=== PATIENT | male | born 1990 | race Caucasian/White ===

== ENCOUNTER 2019-02-27 19:31 | Emergency (ER) | payer MEDICAID, SELFPAY ==
[2019-02-27 19:33] VITALS: BP 155/102; PULSE 100; RESP 18; TEMP 36.8; O2SAT 98; BMI 36.9
--- NOTE | 2019-02-27 19:35 | ED_ITS ---
Entered by Enedina Estrella, acting as scribe for Liane Sinclair HPI - Abdominal Pain General: Chief Complaint: Abdominal Pain Stated Complaint: abd pain Time Seen by Provider: 02/27/19 19:33 History of Present Illness: HPI narrative: 29 yo m came to the er for abd pain. Onset was today. Pt states that he has IBS-D and feels like that he is having a flare up. Pt states that he has been having some abd pain and some heartburn. MD elicited complaint: abdominal pain Pertinent past history: other (IBS-D) Onset (ago): day(s) (today) Pain Consistency: constant Location: LUQ, RUQ, RLQ and LLQ Severity: mild Quality: other (pain) Radiation: none Migration to: no migration Exacerbating factors: nothing Relieving factors: nothing Associated Symptoms: Denies chills, coffee ground emesis, constipation, GI cramping, diarrhea, dysuria, fever(s), hematochezia, hematuria, hematemesis, m rahul, nausea, syncope and vomiting Review of Systems General: Reports: other (negative unless marked) Const: Denies: fever, chills, body aches, fatigue, malaise or diaphoresis Eyes: Denies: change in vision or blurry vision ENMT: Denies: throat pain, painful swallowing, hoarseness, ear pain, ear discharge, Change in hearing or nasal discharge Card: Denies: chest pain, palpitations, irregular heart rhythm, syncope, pre- syncope, shortness of breath on exertion or shortness of breath when lying down Resp: Denies: shortness of breath, productive cough, non-productive cough, wheezing, coughing up blood or chest congestion GI: Denies: abdominal pain, nausea, vomiting, vomiting blood, coffee grounds in vomit, diarrhea, constipation, cramping, blood in stool or black tarry stool : Denies: flank pain, difficulty urinating, painful urination, urinary frequency, urinary urgency, decreased urine ouput, urinary incontinence or blood in urine Musc: Denies: neck pain, back pain, extremity pain, extremity swelling, joint pain, joint swelling, joint warmth or joint stiffness Skin/Breast: Denies: rash, skin tenderness or yellow skin Neuro: Denies: headache, numbness in extremities, weakness in extremities, changes in sensation, lack of coordination, difficulty walking, dizziness, vertigo or confusion Endo: Denies: excessive thirst, tired all the time, cold intolerance, excessive sweating, flushing or hot flashes Dexter/Lymph: Denies: easy bruising, easy bleeding, petechiae or enlarged lymph nodes All/Imm: Denies: hives, throat swelling, tongue swelling, facial swelling or acute wheezing PFSH ED PFSH: Statuses (acute, chronic, etc) shown below reflect problem list status as previously entered and may not be historically accurate Social History Smoking and tobacco status: never smoked Physical Exam Const: COMMON NORMALS: no apparent distress, oriented x3, no limitations, healthy appearing and well nourished EXAM LIMITATIONS: no altered mental status GENERAL APPEARANCE: cooperative, well kempt and well developed ORIENTATION/CONSCIOUSNESS: Yes awake HENMT: COMMON NORMALS: normocephalic, head/scalp atraumatic, hearing grossly n ormal bilaterally, external ears normal, EAC's normal, external nose normal and moist oral mucous membranes HEAD & SCALP: normal to inspection, normocephalic and atraumatic FACE & SINUS: normal facial exam and face symmetric NOSE: external nose normal and nares normal EXTERNAL EAR: Yes external ears normal EXTERNAL AUDITORY CANAL: EAC's normal MOUTH: oral and palatal mucosa normal and tongue normal Eye: COMMON NORMALS: PERRL, EOMs intact bilaterally, conjunctivae normal and no scleral icterus GENERAL EYE: normal appearance of both eyes and normal light reflex CONJUNCTIVA: Yes conjunctivae normal SCLERA: sclerae normal CORNEA: Yes corneas normal PUPIL: Yes PERRL DIRECT OPHTHALMOSCOPY: Yes normal light reflex Neck/C-Spine: COMMON NORMALS: full ROM, no lymphadenopathy, supple, no meningeal signs and no JVD GENERAL: Yes normal visual inspection and Yes trachea midline CERVICAL SPINE: Yes cervical ROM normal Chest: COMMONS NORMALS: inspection of chest normal and palpation of chest normal Resp: COMMON NORMALS: normal respiratory effort, no retractions, no use of accessory muscles and clear to auscultation bilaterally EFFORT & INSPECTION: Yes able to speak in complete sentences AUSCULTATION: clear to auscultation bilaterally Cardio: COMMON NORMALS: no JVD, regular rate, regular rhythm, S1 normal heart sound, S2 normal heart sound, no gallops, no clicks, no murmurs and no rub JUGULAR VENOUS DISTENTION: no JVD RATE: regular rate RHYTHM: regular rhythm HEART SOUNDS: S1 normal and S2 normal GI: COMMON NORMALS: soft to palpation, non-tender, no hepatosplenomegaly and no masses INSPECTION: Yes normal to inspection PALPATION: Yes soft and Yes no hepatosplenomegaly : COMMON NORMALS: Yes no CVA tenderness BLADDER/KIDNEY EXAM: Yes no CVA tenderness Back/Pelvis: COMMON NORMALS: no CVA tenderness, thoracic and lumbar spine normal to inspection, no thoracic nor lumbar tenderness and thoraco-lumbar ROM normal Extremity: COMMON NORMALS: normal to inspection, full ROM, normal capillary refill, no joint enlargement, no clubbing, cyanosis or edema and no calf tenderness Neuro: COMMON NORMALS: oriented x3, CN's II-XII intact bilaterally, moves all extremities, no focal motor deficits and no sensory deficits noted MENINGEAL SIGNS: Yes no meningeal signs Psych: COMMON NORMALS: mental status grossly normal, thought process normal, cooperative, affect normal, speech normal and activity/motor behavior normal APPEARANCE: Yes well kempt SPEECH: Yes normal speech THOUGHT PROCESS: normal thought process Skin: COMMON NORMALS: no rashes or lesions noted, skin turgor normal, no jaundice, no petechiae and no mottling GENERAL SKIN EXAM: no rashes or lesions noted and turgor normal Course Vital Signs: Vital signs: Vital Signs Temperature 98.3 F 02/27/19 19:33 Pulse Rate 83 02/27/19 21:32 Respiratory Rate 19 H 02/27/19 21:16 Blood Pressure 156/94 02/27/19 21:32 Pulse Oximetry 96 02/27/19 21:32 MDM - Abdominal Pain MDM Narrative: Medical decision making narrative: Patient comes in complaining of abdominal pain and primarily nausea and vomiting. His symptoms are better here after IV hydration. His abdominal pain was intermittent and cramping in nature. He is resolved at this time. He is loosely to peritonitis his exam. His nausea is better and he said no diarrhea here. He said no recent antibiotic exposure. I will go ahead and discharge him home with medication for his cramping abdominal pain. He does agree to return should his symptoms change or worsen. Lab Data: Labs: Lab Results 02/27/19 02/27/19 02/27/19 Range/Units 19:37 19:37 20:00 WBC 8.1 (4.0-10.0) 10^3/ uL RBC 5.50 H (4.1-5.3) 10^6/u L Hgb 15.1 (11.7-16.6) g/dL Hct 46.1 (42.0-52.0) % MCV 83.8 (80-94) fL MCH 27.5 L (28.0-34.0) pg MCHC 32.8 (30.0-36.0) g/dL RDW 12.5 (12.1-15.1) % Plt Count 269 (130-400) 10^3/c mm MPV 12.0 H (7.4-10.4) fL Neut % (Auto) 70.7 % Lymph % (Auto) 18.9 % [place] % (Auto) 7.4 % Eos % (Auto) 2.1 % Baso % (Auto) 0.5 % Neut # (Auto) 5.8 (1.8-7.7) 10^3/u L Lymph # (Auto) 1.5 (0.8-4.8) 10^3/u L [place] # (Auto) 0.6 (0.2-0.9) 10^3/u L Eos # (Auto) 0.2 (0.0-0.8) 10^3/u L Baso # (Auto) 0.0 (0.0-0.1) 10^3/u L Nucleated RBC % (a uto) 0 % Nucleated RBCs # 0.0 /100WBC Sodium 137 (136-145) mmol/L Potassium 4.1 (3.5-5.1) mmol/L Chloride 98 (98-107) mmol/L Carbon Dioxide 25 (22-29) mmol/L Anion Gap 18.1 (5-19) BUN 10 (6-20) mg/dL Creatinine 1.0 (0.7-1.2) mg/dL GFR Calculation 87.2 L (90-130) mL/min Glucose 119 H (74-109) mg/dL Calcium 10.4 (8.5-10.5) mg/dL Total Bilirubin 0.6 (0.15-1.2) mg/dL AST 21 (0-40) U/L ALT 36 (0-41) U/L Alkaline Phosphata se 102 (40-130) IU/L Total Protein 7.9 (6.6-8.7) g/dL Albumin 5.0 (3.5-5.2) g/dL Globulin 2.9 (1.3-4.6) g/dL Lipase 17 (13-60) U/L Urine Color Yellow (Yellow) Urine Appearance Clear (CLEAR) Urine pH 5 (5-7) Ur Specific Gravit y 1.025 (1.005-1.030) Urine Protein Trace (Negative) Urine Glucose (UA) Norm (Normal) Urine Ketones Negative (Negative) Urine Occult Blood Neg (Negative) Urine Nitrate Negative (Negative) Urine Bilirubin Neg (NEGATIVE) Urine Urobilinogen Norm (Negative) mg/dL Ur Leukocyte Kaylynn ase Negative (Negative) Urine RBC None (0-2) /hpf Urine WBC 0-4 H (0-5) /hpf Ur Squamous Epith Cells None (0-5) Urine Bacteria Trace (NONE) Fine Granular Cast s 0-4 H /lpf Urine Mucus 2+ Discharge Plan Discharge Patient Disposition: Home, Self-Care Clinical Impression: Vomiting and diarrhea, History of IBS Abdominal pain Qualifiers: Abdominal location: generalized Qualified Code(s): R10.84 - Generalized abdominal pain Condition: Stable Prescriptions: New Zofran 4 mg tablet 4 mg PO DAILY PRN (Reason: nausea and vomiting) 5 Days Qty: 20 RF: 0 dicyclomine 20 mg tablet 20 mg PO QID 5 Days Qty: 20 RF: 0 Discharge Orders: Discharge Order (Routine); Ordered 02/27/19 Ordered By: Liane Sinclair Referrals: Darshan Bonilla MD [Primary Care Provider] - 1-3 days Discharge Diet: Advance as tolerated Discharge Activity: Increase activity as tolerated Patient Instructions: Abdominal Pain (ED) Activity Restrictions/Additional Instructions: Please return to the ER immediately for any of the signs or symptoms listed on your discharge instruction sheets, worsening/changing of your symptoms, you are not getting better as quickly as expected, or for ANY other cause or concerns. Discharge Date/Time: 02/27/19 22:05 Coding Level of Care Code ED Guest Experience Manager for Chg Fwd Exam Problem Focused The documentation recorded by the Sameer glasgow Stephanie Lyn, accurately reflects the service I personally performed and the decisions made by Dottie martinez Eli N Feb 27, 2019 19:31
[2019-02-27 19:49] VITALS: RESP 19
[2019-02-27] MEDS: morphine 4 mg/mL SDV 1 mL IVP ×2 (19:49→21:16)
[2019-02-27] MEDS: sodium chloride 0.9% 1,000 ML 999 ML IV (19:49)
[2019-02-27] MEDS: ondansetron 2 mg/ML SDV 2 mL 4 MG IVP (19:49)
[2019-02-27 19:55] LABS: Basophils % 0.5 %; Eosinophils # 0.2 10^3/uL (0.0-0.8); Eosinophils % 2.1 %; Hematocrit 46.1 % (42.0-52.0); Hemoglobin 15.1 g/dL (11.7-16.6); Lymphocytes # 1.5 10^3/uL (0.8-4.8); Lymphocytes % 18.9 %; Mean Corpuscular HGB Conc 32.8 g/dL (30.0-36.0); Mean Corpuscular Hemoglobin 27.5 pg (28.0-34.0); Mean Corpuscular Volume 83.8 fL (80-94); Monocytes # 0.6 10^3/uL (0.2-0.9); Monocytes % 7.4 %; Neutrophils # 5.8 10^3/uL (1.8-7.7); Neutrophils % 70.7 %; Nucleated Red Blood Cells % 0 %; Platelet Count 269 10^3/cmm (130-400); Red Cell Distribution Width 12.5 % (12.1-15.1); White Blood Count 8.1 10^3/uL (4.0-10.0)
[2019-02-27 20:08] LABS: Alanine Aminotransferase 36 U/L (0-41); Alkaline Phosphatase 102 IU/L (40-130); Anion Gap 18.1 (5-19); Aspartate Amino Transferase 21 U/L (0-40); Blood Urea Nitrogen 10 mg/dL (6-20); Calcium 10.4 mg/dL (8.5-10.5); Carbon Dioxide 25 mmol/L (22-29); Chloride 98 mmol/L (98-107); Creatinine Clr Calc Pharmacy 141.1865; Globulin 2.9 g/dL (1.3-4.6); Glomerular Filtration Rate 87.2 mL/min (90-130); Glucose 119 mg/dL (74-109); Lipase 17 U/L (13-60); Potassium 4.1 mmol/L (3.5-5.1); Sodium 137 mmol/L (136-145); Total Bilirubin 0.6 mg/dL (0.15-1.2); Total Protein 7.9 g/dL (6.6-8.7)
[2019-02-27] MEDS: metoclopramide 5 mg/mL SDV 2 mL 10 MG IV (20:58)
[2019-02-27 21:02] LABS: Bilirubin Urine Neg (NEGATIVE); Blood Urine Neg (Negative); Glucose Urine UA Norm (Normal); Ketones Urine Negative (Negative); Leukocyte Esterase Urine Negative (Negative); Nitrate Urine Negative (Negative); Protein Urine Trace (Negative); Specific Gravity, Urine 1.025 (1.005-1.030); Urine Appearance Clear (CLEAR); Urine Color Yellow (Yellow); Urobilinogen Urine Norm (Negative); pH Urine 5 (5-7)
[2019-02-27 21:03] LABS: Add Urine Culture? No; Bacteria Urine TRACE; Fine Granular Casts Urine 0-4 /lpf; Mucus Urine 2+; WBC Urine 0-4 /hpf (0-5)
[2019-02-27 21:16] VITALS: RESP 19
[2019-02-27] MEDS: diphenhydrAMINE 50 mg/mL SDV 1mL 25 MG IVP (21:16)
[2019-02-27 21:32] VITALS: BP 156/94; PULSE 83; O2SAT 96
== END 2019-02-27 22:05 | disposition home or self-care (01) ==
PROVIDERS: Emergency Medicine; Emergency Provider Emergency Medicine; Family Provider Family Medicine; PCP Family Medicine
DX: R10.84 Generalized abdominal pain (principal); R11.10 Vomiting, unspecified; R19.7 Diarrhea, unspecified
CPT/HCPCS: 80053; 81001; 83690; 85025; 96360; 96374; 99282; J1200; J2270; J2405; J2765; J7030

== ENCOUNTER 2019-05-26 14:33 | Emergency (ER) | payer MEDICAID, SELFPAY ==
[2019-05-26 14:37] VITALS: BP 154/88; PULSE 80; RESP 16; TEMP 36.6; O2SAT 100; BMI 32.1
--- NOTE | 2019-05-26 14:59 | ECG_ITS ---
Measurements Intervals [place] Rate: 82 P: 36 RI: 151 QRS: 10 QRSD: 97 T: 17 QT: 357 QTc: 417 SINUS RHYTHM POSSIBLE LEFT VENTRICULAR HYPERTROPHY [VOLTAGE CRITERIA PLUS LAE OR QRS WIDENING] NONSPECIFIC T-WAVE ABNORMALITY Compared to ECG 12/06/2018 11:10:07 T-wave abnormality now present Electronically Signed On 05-27-2019 18:06:50 CDT by Brie Whitaker M.D. [email or web address]
--- NOTE | 2019-05-26 15:00 | ED_ITS ---
HPI - Syncope General: Chief Complaint: Syncope Stated Complaint: passed out yesterday Time Seen by Provider: 05/26/19 14:59 Source: patient Mode of arrival: ambulatory Limitations: no limitations History of Present Illness: HPI narrative: Patient comes in today for complaints of an episode of syncope yesterday. Patient states that he had been exerting himself dragging heavy objects up a hill such as a refrigerator, dryer, and a concrete tub. Patient reports after carrying the concrete tub up the hill he sat down to rest and then he woke up shortly after with people saying he had a seizure. Patient reports that he feels fine and denies any chest pain or difficulty breathing. Patient appears well. Patient appears in no pain. Patient did report mild headache and feeling tired since yesterday. MD complaint: loss of consciousness Review of Systems General: Reports: 10 or more systems reviewed and unremarkable except in HPI and below Neuro: Reports: other (loc) PFSH ED PFSH: Social History Smoking and tobacco status: never smoked Physical Exam Const: COMMON NORMALS: no apparent distress and oriented x3 GENERAL APPEARANCE: cooperative HENMT: COMMON NORMALS: normocephalic, TM's normal bilaterally and external nose normal HEAD & SCALP: normal to inspection and normocephalic NOSE: external nose normal TYMPANIC MEMBRANE: TM's normal bilaterally MOUTH: o ral and palatal mucosa normal THROAT: posterior oropharynx normal Eye: GENERAL EYE: normal appearance of both eyes Neck/C-Spine: COMMON NORMALS: full ROM Lymph: LYMPHATIC: no lymphadenopathy noted Chest: COMMONS NORMALS: inspection of chest normal Resp: COMMON NORMALS: normal respiratory effort EFFORT & INSPECTION: Yes able to speak in complete sentences Cardio: COMMON NORMALS: regular rate and regular rhythm RATE: regular rate RHYTHM: regular rhythm GI: COMMON NORMALS: non-tender : COMMON NORMALS: Yes no CVA tenderness BLADDER/KIDNEY EXAM: Yes no CVA t enderness Back/Pelvis: COMMON NORMALS: no CVA tenderness and thoracic and lumbar spine normal to inspection Extremity: COMMON NORMALS: normal to inspection Neuro: COMMON NORMALS: oriented x3 and moves all extremities Psych: COMMON NORMALS: mental status grossly normal and cooperative Skin: COMMON NORMALS: no rashes or lesions noted GENERAL SKIN EXAM: no rashes or lesions noted Course Vital Signs: Vital signs: Vital Signs Temperature 97.8 F 05/26/19 14:37 Pulse Rate 81 05/26/19 18:00 Respiratory Rate 21 H 05/26/19 16:29 Blood Pressure 129/82 05/26/19 18:00 Pulse Oximetry 98 05/26/19 18:00 MDM - Syncope MDM Narrative: Medical decision making narrative: Patient comes in today for complaints of an episode of syncope yesterday after exertion. Exam notes normal vital signs. Respirations are even lungs are clear to auscultation. Skin is warm and dry. Heart rates regular. Different differential diagnosis includes but not limited to vasovagal syncope, arrhythmia, heat exhaustion, seizure episode. Laboratory values were normal except for some mild elevation in creatinine at 1.3. EKG showed sinus rhythm with a rate of [address] elevation or prolonged QR, or JOIE. Suspect vasovagal syncope due to patient's exertion as he described from straining to carry a concrete trough up an incline. Recommended patient drink plenty of fluids and follow-up with primary care for further evaluation and treatment. Patient reported understanding of care plan and need for follow-up. Lab Data: Labs: Lab Results 05/26/19 05/26/19 05/26/19 Range/Units 15:45 15:45 16:28 WBC 7.3 (4.0-10.0) 10^3/ uL RBC 5.00 (4.1-5.3) 10^6/u L Hgb 14.1 (11.7-16.6) g/dL Hct 43.3 (42.0-52.0) % MCV 86.6 (80-94) fL MCH 28.2 (28.0-34.0) pg MCHC 32.6 (30.0-36.0) g/dL RDW 13.0 (12.1-15.1) % Plt Count 244 (130-400) 10^3/c mm MPV 12.2 H (7.4-10.4) fL Neut % (Auto) 63.5 % Lymph % (Auto) 22.1 % [place] % (Auto) 8.9 % Eos % (Auto) 4.4 % Baso % (Auto) 0.7 % Neut # (Auto) 4.6 (1.8-7.7) 10^3/u L Lymph # (Auto) 1.6 (0.8-4.8) 10^3/u L [place] # (Auto) 0.7 (0.2-0.9) 10^3/u L Eos # (Auto) 0.3 (0.0-0.8) 10^3/u L Baso # (Auto) 0.1 (0.0-0.1) 10^3/u L Nucleated RBC % (a uto) 0 % Nucleated RBCs # 0.0 /100WBC Sodium 138 (136-145) mmol/L Potassium 4.1 (3.5-5.1) mmol/L Chloride 102 (98-107) mmol/L Carbon Dioxide 24 (22-29) mmol/L Anion Gap 16.1 (5-19) BUN 10 (6-20) mg/dL Creatinine 1.3 H (0.7-1.2) mg/dL GFR Calculation 64.4 L (90-130) mL/min Glucose 100 (65-115) mg/dL Calculated Osmolal ity 282 L (285-295) mOsm/k g Calcium 9.6 (8.5-10.5) mg/dL Urine Color Yellow (Yellow) Urine Appearance Clear (CLEAR) Urine pH 7 (5-7) Ur Specific Gravit y 1.010 (1.005-1.030) Urine Protein Neg (Negative) Urine Glucose (UA) Norm (Normal) Urine Ketones Negative (Negative) Urine Blood Neg (Negative) Urine Nitrate Negative (Negative) Urine Bilirubin Neg (NEGATIVE) Urine Urobilinogen Norm (Negative) mg/dL Ur Leukocyte Kaylynn ase Negative (Negative) Urine Opiates Scre en (Negative) ng/mL Ur Barbiturates Sc reen (Negative) ng/mL Ur Phencyclidine S crn (Negative) ng/mL Ur Amphetamines Sc reen (Negative) ng/mL U Benzodiazepines Scrn (Negative) ng/mL Urine Cocaine Scre en (Negative) ng/mL U Marijuana (THC) Screen (Negative) ng/mL 05/26/19 Range/Units 16:28 WBC (4.0-10.0) 10^3/ uL RBC (4.1-5.3) 10^6/u L Hgb (11.7-16.6) g/dL Hct (42.0-52.0) % MCV (80-94) fL MCH (28.0-34.0) pg MCHC (30.0-36.0) g/dL RDW (12.1-15.1) % Plt Count (130-400) 10^3/c mm MPV (7.4-10.4) fL Neut % (Auto) % Lymph % (Auto) % [place] % (Auto) % Eos % (Auto) % Baso % (Auto) % Neut # (Auto) (1.8-7.7) 10^3/u L Lymph # (Auto) (0.8-4.8) 10^3/u L [place] # (Auto) (0.2-0.9) 10^3/u L Eos # (Auto) (0.0-0.8) 10^3/u L Baso # (Auto) (0.0-0.1) 10^3/u L Nucleated RBC % (a uto) % Nucleated RBCs # /100WBC Sodium (136-145) mmol/L Potassium (3.5-5.1) mmol/L Chloride (98-107) mmol/L Carbon Dioxide (22-29) mmol/L Anion Gap (5-19) BUN (6-20) mg/dL Creatinine (0.7-1.2) mg/dL GFR Calculation (90-130) mL/min Glucose (65-115) mg/dL Calculated Osmolal ity (285-295) mOsm/k g Calcium (8.5-10.5) mg/dL Urine Color (Yellow) Urine Appearance (CLEAR) Urine pH (5-7) Ur Specific Gravit y (1.005-1.030) Urine Protein (Negative) Urine Glucose (UA) (Normal) Urine Ketones (Negative) Urine Blood (Negative) Urine Nitrate (Negative) Urine Bilirubin (NEGATIVE) Urine Urobilinogen (Negative) mg/dL Ur Leukocyte Kaylynn ase (Negative) Urine Opiates Scre en Negative (Negative) ng/mL Ur Barbiturates Sc reen Negative (Negative) ng/mL Ur Phencyclidine S crn Negative (Negative) ng/mL Ur Amphetamines Sc reen Negative (Negative) ng/mL U Benzodiazepines Scrn Negative (Negative) ng/mL Urine Cocaine Scre en Negative (Negative) ng/mL U Marijuana (THC) Screen Negative (Negative) ng/mL EKG Data^: EKG 1: Attestation: I personally reviewed and interpreted this EKG as follows: (1452, sinus rhythm, rate regular @ 82 bpm, no ectopy, no ST elevation) Discharge Plan Discharge Patient Disposition: Home, Self-Care Clinical Impression: Vasovagal syncope Condition: Stable Prescriptions: New meclizine 25 mg tablet 25 mg PO TID PRN (Reason: dizziness) Qty: 20 RF: 0 No Action clonidine HCl 0.1 mg Tablet 0.1 mg PO BID RF: 0 Cytomel 5 mcg Tablet 10 mcg PO DAILY RF: 0 dicyclomine 20 mg Tablet 20 mg PO QID PRN (Reason: IBS) RF: 0 Protonix 40 mg Tablet,Delayed Release (Dr/Ec) 40 mg PO DAILY RF: 0 Flonase Allergy Relief 50 mcg/actuation [place],Suspension 2 spray INTRANASAL DAILY RF: 0 Xyzal 5 mg Tablet 5 mg PO DAILY RF: 0 venlafaxine 75 mg Tablet Extended Release 24 Hr 75 mg PO DAILY RF: 0 Discharge Orders: Discharge Order (Routine); Ordered 05/26/19 Ordered By: Dawit Jaquez Referrals: Darshan Bonilla MD [Primary Care Provider] - Discharge Diet: Usual diet Discharge Activity: Increase activity as tolerated Patient Instructions: Syncope (ED) Activity Restrictions/Additional Instructions: Drink plenty of fluids and stay hydrated in the heat or working. Take routine medications as directed. Follow-up with primary care in one week for recheck Return to ER for new concerns or new symptoms. Discharge Date/Time: 05/26/19 18:00 Coding Level of Care Code ED Key Punch Operator for Chg Fwd Exam Comprehensive
--- NOTE | 2019-05-26 15:15 | CT_ITS ---
WS: [id number] CT HEAD TECHNIQUE: Noncontrast CT of the head obtained from the skullbase to the vertex. CLINICAL INFORMATION: sycope COMPARISON: August 02, 2015 DLP: 784.[address] scans at [facility] use at least one of these dose optimization techniques: automat ed exposure control; mA and/or kV adjustment per patient size (includes targeted exams where dose is matched to clinical indication); or iterative reconstruction. FINDINGS: No evidence of intracranial hemorrhage or mass effect. Ventricular system and basal cisterns are mendez nt.No extra-axial fluid collections. No evidence of mass or mass effect. Normal islas-white differenti ation. Mild mucosal thickening in the paranasal sinuses. Mastoid air cells are well aerated. Normal visualiz ed soft tissues. CT/CT head wo con* [id number] IMPRESSION: 1. No evidence of intracranial hemorrhage or mass effect. 2. No acute intracranial findings.
[2019-05-26 15:30] VITALS: O2SAT 96
[2019-05-26 16:29] VITALS: BP 125/77; PULSE 84; RESP 21; O2SAT 98
[2019-05-26 16:54] LABS: Add Urine Microscopic? NO
[2019-05-26 16:55] LABS: Basophils # 0.1 10^3/uL (0.0-0.1); Basophils % 0.7 %; Eosinophils # 0.3 10^3/uL (0.0-0.8); Eosinophils % 4.4 %; Hematocrit 43.3 % (42.0-52.0); Hemoglobin 14.1 g/dL (11.7-16.6); Lymphocytes # 1.6 10^3/uL (0.8-4.8); Lymphocytes % 22.1 %; Mean Corpuscular HGB Conc 32.6 g/dL (30.0-36.0); Mean Corpuscular Hemoglobin 28.2 pg (28.0-34.0); Mean Corpuscular Volume 86.6 fL (80-94); Mean Platelet Volume 12.2 fL (7.4-10.4); Monocytes # 0.7 10^3/uL (0.2-0.9); Monocytes % 8.9 %; Neutrophils # 4.6 10^3/uL (1.8-7.7); Neutrophils % 63.5 %; Nucleated Red Blood Cells % 0 %; Platelet Count 244 10^3/cmm (130-400); White Blood Count 7.3 10^3/uL (4.0-10.0)
[2019-05-26 17:16] LABS: Anion Gap 16.1 (5-19); Blood Urea Nitrogen 10 mg/dL (6-20); Calcium 9.6 mg/dL (8.5-10.5); Carbon Dioxide 24 mmol/L (22-29); Chloride 102 mmol/L (98-107); Glomerular Filtration Rate 64.4 mL/min (90-130); Glucose 100 mg/dL (65-115); Osmolality Calculated 282 mOsm/kg (285-295); Potassium 4.1 mmol/L (3.5-5.1); Sodium 138 mmol/L (136-145)
[2019-05-26 17:20] LABS: Bilirubin Urine Neg (NEGATIVE); Blood Urine Neg (Negative); Glucose Urine UA Norm (Normal); Ketones Urine Negative (Negative); Leukocyte Esterase Urine Negative (Negative); Nitrate Urine Negative (Negative); Protein Urine Neg (Negative); Urine Appearance Clear (CLEAR); Urine Color Yellow (Yellow); Urobilinogen Urine Norm (Negative); pH Urine 7 (5-7)
[2019-05-26] MEDS: meclizine 25 mg tablet PO (17:21)
[2019-05-26 17:31] LABS: Amphetamines Screen Urine Negative (Negative); Barbiturates Screen Urine Negative (Negative); Benzodiazepines Screen Urine Negative (Negative); Cocaine Screen Urine Negative (Negative); Opiate Screen Urine Negative (Negative); PCP Screen Urine Negative (Negative); THC Screen Urine Negative (Negative)
[2019-05-26 18:00] VITALS: BP 129/82; PULSE 81; O2SAT 98
== END 2019-05-26 18:00 | disposition home or self-care (01) ==
PROVIDERS: Emergency Provider Nurse Practitioner Family; Family Provider Family Medicine; PCP Family Medicine
DX: R55 Syncope and collapse (principal)
CPT/HCPCS: 12345; 70450; 80048; 80306; 81003; 85025; 93005; 99283; J8597

== ENCOUNTER 2019-07-17 14:58 | Emergency (ER) | payer MEDICAID, SELFPAY ==
[2019-07-17] VITALS (9 sets, daily range): BP systolic 137–154; BP diastolic 75–98; PULSE 66–98; RESP 14–16; TEMP 35.9; O2SAT 94–99; BMI 36.2
--- NOTE | 2019-07-17 17:15 | W.ED.GENADLT ---
Documented by User: Lonnie Ye DO 07/17/19 17:43 HPI - General Adult General: Chief complaint: General Medical Stated complaint: numbness everywhere Time Seen by Provider: 07/17/19 17:13 History of Present Illness: HPI narrative: Patient states he has been battling irritable bowel syndrome. He reports alternating constipation and diarrhea. Patient states for last 2-3 days he has numbness and tingling to both sides of the body and his upper and lower extremities. Onset (ago): day(s) Location: head, neck, upper extremity and lower extremity Severity: severe Associated symptoms: Reports headache(s), malaise and nausea; Deny chest pain, confusion, cough, diaphoresis, decreased appetite, dyspnea, fevers/chills or rash Review of Systems General: Reports: 10 or more systems reviewed and unremarkable except in HPI and below Const: Reports: malaise; Denies: diaphoresis Card: Denies: chest pain Resp: Denies: dyspnea GI: Reports: nausea Skin/Breast: Denies: rash Neuro: Reports: headache(s); Denies: confusion PFSH ED PFSH: Social History Smoking and tobacco status: never smoked Physical Exam Const: COMMON NORMALS: no acute distress, average body habitus, alert and well nourished EXAM LIMITATIONS: altered mental status GENERAL APPEARANCE: lethargic ORIENTATION/CONSCIOUSNESS: Yes lethargic HENMT: COMMON NORMALS: normocephalic, atraumatic, hearing grossly normal bilaterally, external ears normal, EAC's normal, TM's normal bilaterally, Normal external nose present, Normal nasal mucous membranes and turbinates present, moist oral mucous membranes, oropharynx normal, dentition normal and gingiva normal HEAD & SCALP: normocephalic and atraumatic NOSE: Normal external nose present and Normal nasal mucous membranes and turbinates present EXTERNAL EAR: Yes external ears normal EXTERNAL AUDITORY CANAL: EAC's normal TYMPANIC MEMBRANE: TM's normal bilaterally Eye: COMMON NORMALS: Equal, round and reactive pupils present, EOMs intact bilaterally, conjunctivae normal, no scleral icterus, no papilledema, normal visual pfeiffer by confrontation and fundi normal bilaterally CONJUNCTIVA: Yes conjunctivae normal PUPIL: Yes Equal, round and reactive pupils present DIRECT OPHTHALMOSCOPY: Yes no papilledema and Yes fundi normal bilaterally Neck/C-Spine: COMMON NORMALS: full ROM, no lymphadenopathy, supple, no meningeal signs, no JVD, Thyroid normal and No carotid bruits THYROID: Thyroid normal Chest: COMMONS NORMALS: normal inspection of the chest and normal palpation of entire chest wall Resp: COMMON NORMALS: normal respiratory effort, No retractions, No use of accessory muscles, clear to auscultation bilaterally and percussion normal AUSCULTATION: clear to auscultation bilaterally PERCUSSION: percussion normal Cardio: COMMON NORMALS: no JVD, regular rate, regular rhythm, S1 normal heart sound present, S2 normal heart sound present, No gallops present (Cardio), No clicks present (Cardio), No murmurs present (Cardio), No rub (Cardio) and Peripheral pulses 2+ throughout RATE: regular rate RHYTHM: regular rhythm HEART SOUNDS: S1 normal heart sound present and S2 normal heart sound present PERIPHERAL PULSES: Peripheral pulses 2+ throughout GI: COMMON NORMALS: Normal to inspection, nondistended, normoactive bowel sounds present, Soft to palpation, non-tender, No hepatosplenomegaly present, no masses and no bruits PALPATION: Yes Soft to palpation and Yes No hepatosplenomegaly present Back/Pelvis: COMMON NORMALS: thoracic and lumbar spine normal to inspection, no thoracic nor lumbar tenderness, thoraco-lumbar ROM normal and straight leg raise negative bilaterally Extremity: COMMON NORMALS: normal to inspection, full ROM, capillary refill normal, no joint enlargement, no clubbing, cyanosis or edema, no calf tenderness and no pedal edema Neuro: SENSORIUM/ORIENTATION: Yes alert, Yes lethargic and Yes somnolent MENINGEAL SIGNS: Yes no meningeal signs Skin: COMMON NORMALS: no rashes or lesions noted, no wounds, no jaundice and no mottling GENERAL SKIN EXAM: no rashes or lesions noted Course Vital Signs: Vital signs: Vital Signs Temperature 96.6 F L 07/17/19 15:29 Pulse Rate 66 07/17/19 20:42 Respiratory Rate 16 07/17/19 20:42 Blood Pressure 154/93 07/17/19 20:42 Pulse Oximetry 98 07/17/19 20:42 [facility] - General Adult Lab Data: Labs: Lab Results 07/17/19 07/17/19 07/17/19 Range/Units 15:35 17:58 17:58 WBC 8.5 (4.0-10.0) 10^3/ uL RBC 5.34 H (4.1-5.3) 10^6/u L Hgb 15.0 (11.7-16.6) g/dL Hct 45.9 (42.0-52.0) % MCV 86.0 (80-94) fL MCH 28.1 (28.0-34.0) pg MCHC 32.7 (30.0-36.0) g/dL RDW 12.7 (12.1-15.1) % Plt Count 275 (130-400) 10^3/c mm MPV 11.8 H (7.4-10.4) fL Neut % (Auto) 70.5 % Lymph % (Auto) 19.3 % [place] % (Auto) 6.7 % Eos % (Auto) 2.6 % Baso % (Auto) 0.5 % Neut # (Auto) 6.0 (1.8-7.7) 10^3/u L Lymph # (Auto) 1.7 (0.8-4.8) 10^3/u L [place] # (Auto) 0.6 (0.2-0.9) 10^3/u L Eos # (Auto) 0.2 (0.0-0.8) 10^3/u L Baso # (Auto) 0.0 (0.0-0.1) 10^3/u L Nucleated RBC % (a uto) 0 % Nucleated RBCs # 0.0 /100WBC Sodium 137 (136-145) mmol/L Potassium 4.6 (3.5-5.1) mmol/L Chloride 99 (98-107) mmol/L Carbon Dioxide 25 (22-29) mmol/L Anion Gap 17.6 (5-19) BUN 7 (6-20) mg/dL Creatinine 0.9 (0.7-1.2) mg/dL GFR Calculation 98.4 (90-130) mL/min Glucose 94 (65-115) mg/dL Calculated Osmolal ity 280 L (285-295) mOsm/k g Lactate (0.5-2.2) mmol/L Calcium 9.8 (8.5-10.5) mg/dL Total Bilirubin 0.4 (0.15-1.2) mg/dL AST 20 (0-40) U/L ALT 27 (0-41) U/L Alkaline Phosphata se 92 (40-130) IU/L Total Protein 8.1 (6.6-8.7) g/dL Albumin 4.5 (3.5-5.2) g/dL Globulin 3.6 (1.3-4.6) g/dL Lipase 19 (13-60) U/L TSH 1.95 (0.27-4.20) uIU/ mL Urine Color Yellow (Yellow) Urine Appearance Clear (CLEAR) Urine pH 7 (5-7) Ur Specific Gravit y 1.010 (1.005-1.030) Urine Protein Neg (Negative) Urine Glucose (UA) Norm (Normal) Urine Ketones Negative (Negative) Urine Blood Neg (Negative) Urine Nitrate Negative (Negative) Urine Bilirubin Neg (NEGATIVE) Urine Urobilinogen Neg (Negative) mg/dL Ur Leukocyte Kaylynn ase Negative (Negative) 07/17/19 Range/Units 17:58 WBC (4.0-10.0) 10^3/ uL RBC (4.1-5.3) 10^6/u L Hgb (11.7-16.6) g/dL Hct (42.0-52.0) % MCV (80-94) fL MCH (28.0-34.0) pg MCHC (30.0-36.0) g/dL RDW (12.1-15.1) % Plt Count (130-400) 10^3/c mm MPV (7.4-10.4) fL Neut % (Auto) % Lymph % (Auto) % [place] % (Auto) % Eos % (Auto) % Baso % (Auto) % Neut # (Auto) (1.8-7.7) 10^3/u L Lymph # (Auto) (0.8-4.8) 10^3/u L [place] # (Auto) (0.2-0.9) 10^3/u L Eos # (Auto) (0.0-0.8) 10^3/u L Baso # (Auto) (0.0-0.1) 10^3/u L Nucleated RBC % (a uto) % Nucleated RBCs # /100WBC Sodium (136-145) mmol/L Potassium (3.5-5.1) mmol/L Chloride (98-107) mmol/L Carbon Dioxide (22-29) mmol/L Anion Gap (5-19) BUN (6-20) mg/dL Creatinine (0.7-1.2) mg/dL GFR Calculation (90-130) mL/min Glucose (65-115) mg/dL Calculated Osmolal ity (285-295) mOsm/k g Lactate 0.9 (0.5-2.2) mmol/L Calcium (8.5-10.5) mg/dL Total Bilirubin (0.15-1.2) mg/dL AST (0-40) U/L ALT (0-41) U/L Alkaline Phosphata se (40-130) IU/L Total Protein (6.6-8.7) g/dL Albumin (3.5-5.2) g/dL Globulin (1.3-4.6) g/dL Lipase (13-60) U/L TSH (0.27-4.20) uIU/ mL Urine Color (Yellow) Urine Appearance (CLEAR) Urine pH (5-7) Ur Specific Gravit y (1.005-1.030) Urine Protein (Negative) Urine Glucose (UA) (Normal) Urine Ketones (Negative) Urine Blood (Negative) Urine Nitrate (Negative) Urine Bilirubin (NEGATIVE) Urine Urobilinogen (Negative) mg/dL Ur Leukocyte Kaylynn ase (Negative) Discharge Plan Discharge Patient Disposition: Home, Self-Care Clinical Impression: Paresthesias Irritable bowel syndrome Qualifiers: Irritable bowel syndrome type: with both diarrhea and constipation Qualified Code(s): K58.2 - Mixed irritable bowel syndrome Condition: Stable Prescriptions: New Zofran 4 mg tablet 4 mg PO Q6H PRN (Reason: nausea and vomiting) Qty: 20 RF: 0 No Action clonidine HCl 0.1 mg Tablet 0.1 mg PO BID RF: 0 liothyronine [Cytomel] 5 mcg Tablet 10 mcg PO DAILY RF: 0 dicyclomine 20 mg Tablet 20 mg PO QID PRN (Reason: IBS) RF: 0 pantoprazole [Protonix] 40 mg Tablet,Delayed Release (Dr/Ec) 40 mg PO DAILY RF: 0 fluticasone propionate [Flonase Allergy Relief] 50 mcg/actuation [place],Suspension 2 spray INTRANASAL DAILY RF: 0 levocetirizine [Xyzal] 5 mg Tablet 5 mg PO DAILY RF: 0 venlafaxine 75 mg Tablet Extended Release 24 Hr 75 mg PO DAILY RF: 0 meclizine 25 mg tablet 25 mg PO TID PRN (Reason: dizziness) Qty: 20 RF: 0 Discharge Orders: Discharge Order (Routine); Ordered 07/17/19 Ordered By: Liane Sinclair Referrals: Darshan Bonilla MD [Primary Care Provider] - 1-3 days Discharge Diet: Advance as tolerated and Clear Liquid Discharge Activity: Increase activity as tolerated Patient Instructions: Irritable Bowel Syndrome (ED) Activity Restrictions/Additional Instructions: Please return to the ER immediately for any of the signs or symptoms listed on your discharge instruction sheets, worsening/changing of your symptoms, you are not getting better as quickly as expected, or for ANY other cause or concerns. Stand Alone Forms: Work/School Release Discharge Date/Time: 07/17/19 20:43 Sign Out Sign Out Data: Patient Sign Out occurred on 07/17/19 at 18:14. Patient's care was discussed, and care was transferred from to Liane Sinclair. Coding Level of Care Code ED Academic Registrar for Chg Fwd Exam Comprehensive Documented by User: Liane Sinclair 07/18/19 02:26 HPI - General Adult General: Chief complaint: General Medical Stated complaint: numbness everywhere Time Seen by Provider: 07/17/19 17:13 PFSH ED PFSH: Social History Smoking and tobacco status: never smoked Course Vital Signs: Vital signs: Vital Signs Temperature 96.6 F L 07/17/19 15:29 Pulse Rate 66 07/17/19 20:42 Respiratory Rate 16 07/17/19 20:42 Blood Pressure 154/93 07/17/19 20:42 Pulse Oximetry 98 07/17/19 20:42 MDM - General Adult MDM Narrative: Medical decision making narrative: Patient care inherited by me at change of shift from Dr. Trinidad. Please see his note for his history, physical exam and medical decision-making notes. Patient is complaining of a flareup of his irritable bowel symptoms and also feeling numbness and tingling everywhere. Dr. Trinidad's impression was the patient was afraid he was having a stroke but after he explained to him that his symptoms were bilateral this was not a sign or symptom of stroke with the patient was very relieved. Here his lab work is unremarkable, his EKG is normal and his CTA with and without contrast with the CTA being of the head and neck is normal. The patient states he is feeling better would like to go home but he is requesting a work excuse. He agrees to return should his symptoms change or worsen but at this time he has no other questions. I see no sign of acute life-threatening illness at this time and the patient verbalized that he understands he is welcome to return should his symptoms change or worsen. Lab Data: Attestation: I reviewed the patient's lab results. Labs: Lab Results 07/17/19 07/17/19 07/17/19 Range/Units 15:35 17:58 17:58 WBC 8.5 (4.0-10.0) 10^3/ uL RBC 5.34 H (4.1-5.3) 10^6/u L Hgb 15.0 (11.7-16.6) g/dL Hct 45.9 (42.0-52.0) % MCV 86.0 (80-94) fL MCH 28.1 (28.0-34.0) pg MCHC 32.7 (30.0-36.0) g/dL RDW 12.7 (12.1-15.1) % Plt Count 275 (130-400) 10^3/c mm MPV 11.8 H (7.4-10.4) fL Neut % (Auto) 70.5 % Lymph % (Auto) 19.3 % [place] % (Auto) 6.7 % Eos % (Auto) 2.6 % Baso % (Auto) 0.5 % Neut # (Auto) 6.0 (1.8-7.7) 10^3/u L Lymph # (Auto) 1.7 (0.8-4.8) 10^3/u L [place] # (Auto) 0.6 (0.2-0.9) 10^3/u L Eos # (Auto) 0.2 (0.0-0.8) 10^3/u L Baso # (Auto) 0.0 (0.0-0.1) 10^3/u L Nucleated RBC % (a uto) 0 % Nucleated RBCs # 0.0 /100WBC Sodium 137 (136-145) mmol/L Potassium 4.6 (3.5-5.1) mmol/L Chloride 99 (98-107) mmol/L Carbon Dioxide 25 (22-29) mmol/L Anion Gap 17.6 (5-19) BUN 7 (6-20) mg/dL Creatinine 0.9 (0.7-1.2) mg/dL GFR Calculation 98.4 (90-130) mL/min Glucose 94 (65-115) mg/dL Calculated Osmolal ity 280 L (285-295) mOsm/k g Lactate (0.5-2.2) mmol/L Calcium 9.8 (8.5-10.5) mg/dL Total Bilirubin 0.4 (0.15-1.2) mg/dL AST 20 (0-40) U/L ALT 27 (0-41) U/L Alkaline Phosphata se 92 (40-130) IU/L Total Protein 8.1 (6.6-8.7) g/dL Albumin 4.5 (3.5-5.2) g/dL Globulin 3.6 (1.3-4.6) g/dL Lipase 19 (13-60) U/L TSH 1.95 (0.27-4.20) uIU/ mL Urine Color Yellow (Yellow) Urine Appearance Clear (CLEAR) Urine pH 7 (5-7) Ur Specific Gravit y 1.010 (1.005-1.030) Urine Protein Neg (Negative) Urine Glucose (UA) Norm (Normal) Urine Ketones Negative (Negative) Urine Blood Neg (Negative) Urine Nitrate Negative (Negative) Urine Bilirubin Neg (NEGATIVE) Urine Urobilinogen Neg (Negative) mg/dL Ur Leukocyte Kaylynn ase Negative (Negative) 07/17/19 Range/Units 17:58 WBC (4.0-10.0) 10^3/ uL RBC (4.1-5.3) 10^6/u L Hgb (11.7-16.6) g/dL Hct (42.0-52.0) % MCV (80-94) fL MCH (28.0-34.0) pg MCHC (30.0-36.0) g/dL RDW (12.1-15.1) % Plt Count (130-400) 10^3/c mm MPV (7.4-10.4) fL Neut % (Auto) % Lymph % (Auto) % [place] % (Auto) % Eos % (Auto) % Baso % (Auto) % Neut # (Auto) (1.8-7.7) 10^3/u L Lymph # (Auto) (0.8-4.8) 10^3/u L [place] # (Auto) (0.2-0.9) 10^3/u L Eos # (Auto) (0.0-0.8) 10^3/u L Baso # (Auto) (0.0-0.1) 10^3/u L Nucleated RBC % (a uto) % Nucleated RBCs # /100WBC Sodium (136-145) mmol/L Potassium (3.5-5.1) mmol/L Chloride (98-107) mmol/L Carbon Dioxide (22-29) mmol/L Anion Gap (5-19) BUN (6-20) mg/dL Creatinine (0.7-1.2) mg/dL GFR Calculation (90-130) mL/min Glucose (65-115) mg/dL Calculated Osmolal ity (285-295) mOsm/k g Lactate 0.9 (0.5-2.2) mmol/L Calcium (8.5-10.5) mg/dL Total Bilirubin (0.15-1.2) mg/dL AST (0-40) U/L ALT (0-41) U/L Alkaline Phosphata se (40-130) IU/L Total Protein (6.6-8.7) g/dL Albumin (3.5-5.2) g/dL Globulin (1.3-4.6) g/dL Lipase (13-60) U/L TSH (0.27-4.20) uIU/ mL Urine Color (Yellow) Urine Appearance (CLEAR) Urine pH (5-7) Ur Specific Gravit y (1.005-1.030) Urine Protein (Negative) Urine Glucose (UA) (Normal) Urine Ketones (Negative) Urine Blood (Negative) Urine Nitrate (Negative) Urine Bilirubin (NEGATIVE) Urine Urobilinogen (Negative) mg/dL Ur Leukocyte Kaylynn ase (Negative) Imaging Data^: CXR/Acute Abdominal Series: My impression: No acute cardiopulmonary findings. No sign of free air, no obstruction nonfocal bowel gas pattern. Discharge Plan Discharge Patient Disposition: Home, Self-Care Clinical Impression: Paresthesias Irritable bowel syndrome Qualifiers: Irritable bowel syndrome type: with both diarrhea and constipation Qualified Code(s): K58.2 - Mixed irritable bowel syndrome Condition: Stable Prescriptions: New Zofran 4 mg tablet 4 mg PO Q6H PRN (Reason: nausea and vomiting) Qty: 20 RF: 0 No Action clonidine HCl 0.1 mg Tablet 0.1 mg PO BID RF: 0 liothyronine [Cytomel] 5 mcg Tablet 10 mcg PO DAILY RF: 0 dicyclomine 20 mg Tablet 20 mg PO QID PRN (Reason: IBS) RF: 0 pantoprazole [Protonix] 40 mg Tablet,Delayed Release (Dr/Ec) 40 mg PO DAILY RF: 0 fluticasone propionate [Flonase Allergy Relief] 50 mcg/actuation [place],Suspension 2 spray INTRANASAL DAILY RF: 0 levocetirizine [Xyzal] 5 mg Tablet 5 mg PO DAILY RF: 0 venlafaxine 75 mg Tablet Extended Release 24 Hr 75 mg PO DAILY RF: 0 meclizine 25 mg tablet 25 mg PO TID PRN (Reason: dizziness) Qty: 20 RF: 0 Discharge Orders: Discharge Order (Routine); Ordered 07/17/19 Ordered By: Liane Sinclair Referrals: Darshan Bonilla MD [Primary Care Provider] - 1-3 days Discharge Diet: Advance as tolerated and Clear Liquid Discharge Activity: Increase activity as tolerated Patient Instructions: Irritable Bowel Syndrome (ED) Activity Restrictions/Additional Instructions: Please return to the ER immediately for any of the signs or symptoms listed on your discharge instruction sheets, worsening/changing of your symptoms, you are not getting better as quickly as expected, or for ANY other cause or concerns. Stand Alone Forms: Work/School Release Discharge Date/Time: 07/17/19 20:43 Sign Out Sign Out Data: Patient Sign Out occurred on 07/17/19 at 18:14. Patient's care was discussed, and care was transferred from to Liane Sinclair. Coding Level of Care Code ED Academic Registrar for Jaylen Fwd Exam Comprehensive
--- NOTE | 2019-07-17 17:38 | CTR_ITS ---
PROCEDURE INFORMATION: Exam: CT Head Without Contrast Exam date and time: 07/17/2019 6:29 PM Age: 29 years old Clinical indication: Numbness / parasthesia; Bilateral; Patient HX: C/O numbness all over TECHNIQUE: Imaging protocol: Computed tomography of the head without contrast. Radiation optimization: All CT scans at this facility use at least one of these dose optimization techniques: automated exposure control; mA and/or kV adjustment per patient size (includes targeted exams where dose is matched to clinical indication); or iterative reconstruction. COMPARISON: No relevant prior studies available. RADIATION DOSE METRICS: Total DLP: 759.87 mGy-cm FINDINGS: Brain: Normal. No hemorrhage. Unremarkable white matter. No mass effect. Ventricles: Normal. No ventriculomegaly. Bones/joints: Unremarkable. No acute fracture. Sinuses: Visualized sinuses are unremarkable. No fluid levels. Mastoid air cells: Visualized mastoid air cells are well aerated. Soft tissues: Unremarkable. CT/CT head wo con* [id number] IMPRESSION: No acute intracranial abnormality. Radiation Dose CTDIVOL = (mGy): DLP = 759.87 (mGy-cm)
--- NOTE | 2019-07-17 17:38 | XR_ITS ---
WS: [id number] Abdomen series: PA CHEST AND 2 VIEWS OF THE ABDOMEN HISTORY: diarrhea COMPARISON: 01/25/2019 Lungs are clear and well aerated. Heart size is normal. No free air beneath the diaphragm. Bowel gas pattern is normal. No masses or calcifications. Osseous structures are also within normal l imits. Prior cholecystectomy. LEFT convex curvature lumbar spine. XR/XR acute abdomen series [id number] IMPRESSION: Normal abdomen series.
--- NOTE | 2019-07-17 17:38 | CTR_ITS ---
PROCEDURE INFORMATION: Exam: CT Angiography Head With Contrast Exam date and time: 07/17/2019 6:29 PM Age: 29 years old Clinical indication: Patient HX: C/O numbness all over TECHNIQUE: Imaging protocol: Computed tomography angiography of the head with intravenous contrast. 3D rendering: MIP and/or 3D reconstructed images were created by the technologist. Radiation optimization: All CT scans at this facility use at least one of these dose optimization techniques: automated exposure control; mA and/or kV adjustment per patient size (includes targeted exams where dose is matched to clinical indication); or iterative reconstruction. Contrast material: OMNI 350; Contrast volume: 95 ml; Contrast route: 20G; COMPARISON: CT head wo con* [id number] 07/17/2019 7:18 PM RADIATION DOSE METRICS: Total DLP: 2210.26 mGy-cm FINDINGS: Anterior cerebral arteries: No occlusion or significant stenosis. No aneurysm. Right internal carotid artery: Intracranial segment is patent with no significant stenosis or occlusion. No aneurysm. Right middle cerebral artery: No occlusion or significant stenosis. No aneurysm. Right posterior cerebral artery: No occlusion or significant stenosis. No aneurysm. Right vertebral artery: No occlusion or significant stenosis. No aneurysm. Left internal carotid artery: Intracranial segment is patent with no significant stenosis or occlusion. No aneurysm. Left middle cerebral artery: No occlusion or significant stenosis. No aneurysm. Left posterior cerebral artery: No occlusion or significant stenosis. No aneurysm. Left vertebral artery: No occlusion or significant stenosis. No aneurysm. Basilar artery: No occlusion or significant stenosis. No aneurysm. IMPRESSION: No large vessel stenosis or occlusion. PROCEDURE INFORMATION: Exam: CT Angiography Neck With Contrast Exam date and time: 07/17/2019 6:29 PM Age: 29 years old Clinical indication: Patient HX: C/O numbness all over TECHNIQUE: Imaging protocol: Computed tomography angiography of the neck with intravenous contrast. 3D rendering: MIP and/or 3D reconstructed images were created by the technologist. Radiation optimization: All CT scans at this facility use at least one of these dose optimization techniques: automated exposure control; mA and/or kV adjustment per patient size (includes targeted exams where dose is matched to clinical indication); or iterative reconstruction. Contrast material: OMNI 350; Contrast volume: 95 ml; Contrast route: 20G; COMPARISON: CT head wo con* [id number] 07/17/2019 7:18 PM RADIATION DOSE METRICS: Total DLP: 2210.26 mGy-cm FINDINGS: Right common carotid artery: No stenosis. No dissection or occlusion. Right internal carotid artery: No stenosis of the extracranial segment. No dissection or occlusion. Right external carotid artery: No occlusion or stenosis of the origin. Right vertebral artery: No stenosis. No dissection or occlusion. Left common carotid artery: No stenosis. No dissection or occlusion. Left internal carotid artery: No stenosis of the extracranial segment. No dissection or occlusion. Left external carotid artery: No occlusion or stenosis of the origin. Left vertebral artery: No stenosis. No dissection or occlusion. Bones/joints: No acute fracture. Soft tissues: Normal. No significant soft tissue swelling. CT/CT angio headneck* [id number] IMPRESSION: No stenosis or occlusion. REFERENCES: NASCET CRITERIA. The degree of internal carotid artery stenosis is based on NASCET criteria. Normal is no stenosis. Mild is less than 50% stenosis. Moderate is 50-69% stenosis. Severe is 70% to 99% stenosis. Total occlusion is no detectable patent lumen. Radiation Dose CTDIVOL = (mGy): DLP = 2210.26~2210.26 (mGy-cm)
--- NOTE | 2019-07-17 17:40 | ECG_ITS ---
Measurements Intervals [place] Rate: 77 P: 38 [place]: 149 QRS: 20 QRSD: 95 T: 22 QT: 367 QTc: 416 SINUS RHYTHM POSSIBLE LEFT VENTRICULAR HYPERTROPHY [VOLTAGE CRITERIA PLUS LAE OR QRS WIDENING] NONSPECIFIC T-WAVE ABNORMALITY Compared to ECG 05/26/2019 14:52:26 No significant changes Electronically Signed On 07-17-2019 20:57:10 CDT by Brie Whitaker M.D. [email or web address]
[2019-07-17 18:03] LABS: Basophils % 0.5 %; Eosinophils # 0.2 10^3/uL (0.0-0.8); Eosinophils % 2.6 %; Hematocrit 45.9 % (42.0-52.0); Lymphocytes # 1.7 10^3/uL (0.8-4.8); Lymphocytes % 19.3 %; Mean Corpuscular HGB Conc 32.7 g/dL (30.0-36.0); Mean Corpuscular Hemoglobin 28.1 pg (28.0-34.0); Mean Platelet Volume 11.8 fL (7.4-10.4); Monocytes # 0.6 10^3/uL (0.2-0.9); Monocytes % 6.7 %; Neutrophils % 70.5 %; Nucleated Red Blood Cells % 0 %; Platelet Count 275 10^3/cmm (130-400); Red Blood Count 5.34 10^6/uL (4.1-5.3); Red Cell Distribution Width 12.7 % (12.1-15.1); White Blood Count 8.5 10^3/uL (4.0-10.0)
[2019-07-17 18:21] LABS: Lactate (Lactic Acid level) 0.9 mmol/L (0.5-2.2)
[2019-07-17 18:32] LABS: Alanine Aminotransferase 27 U/L (0-41); Albumin Level 4.5 g/dL (3.5-5.2); Alkaline Phosphatase 92 IU/L (40-130); Anion Gap 17.6 (5-19); Aspartate Amino Transferase 20 U/L (0-40); Blood Urea Nitrogen 7 mg/dL (6-20); Calcium 9.8 mg/dL (8.5-10.5); Carbon Dioxide 25 mmol/L (22-29); Chloride 99 mmol/L (98-107); Globulin 3.6 g/dL (1.3-4.6); Glomerular Filtration Rate 98.4 mL/min (90-130); Glucose 94 mg/dL (65-115); Lipase 19 U/L (13-60); Osmolality Calculated 280 mOsm/kg (285-295); Potassium 4.6 mmol/L (3.5-5.1); Sodium 137 mmol/L (136-145); Thyroid Stimulating Hormone 1.95 uIU/mL (0.27-4.20); Total Bilirubin 0.4 mg/dL (0.15-1.2); Total Protein 8.1 g/dL (6.6-8.7)
[2019-07-17] MEDS: iohexol 350 mg/mL 100 mL Btl IV (19:33)
[2019-07-17 20:09] LABS: Add Urine Microscopic? NO
[2019-07-17 20:14] LABS: Bilirubin Urine Neg (NEGATIVE); Blood Urine Neg (Negative); Glucose Urine UA Norm (Normal); Ketones Urine Negative (Negative); Leukocyte Esterase Urine Negative (Negative); Nitrate Urine Negative (Negative); Protein Urine Neg (Negative); Urine Appearance Clear (CLEAR); Urine Color Yellow (Yellow); Urobilinogen Urine Neg (Negative); pH Urine 7 (5-7)
== END 2019-07-17 20:43 | disposition home or self-care (01) ==
PROVIDERS: Family Medicine; Emergency Provider Emergency Medicine; PCP Family Medicine
DX: R20.2 Paresthesia of skin (principal); K58.2 Mixed irritable bowel syndrome
CPT/HCPCS: 12345; 70450; 70496; 70498; 74022; 80053; 81003; 83605; 83690; 84443; 85025; 93005; 99283; Q9967

== ENCOUNTER 2019-07-19 14:51 | Emergency (ER) | payer MEDICAID, SELFPAY ==
[2019-07-19 15:03] VITALS: BP 142/80; PULSE 79; RESP 18; TEMP 37.1; O2SAT 98; BMI 36.2
--- NOTE | 2019-07-19 15:29 | W.ED.GENADLT ---
HPI - General Adult General: Chief complaint: General Medical Stated complaint: hand/feet numbness Time Seen by Provider: 07/19/19 15:20 History of Present Illness: HPI narrative: Patient states he just has tingling on back of his legs and his back and his neck can face and other places been going on for quite a while his IBS symptoms he had other day seem to improve patient is disabled works doing junk collection denies fever chills cough shortness of breath MD complaint: Anxiety Onset (ago): week(s) Associated symptoms: Reports no associated symptoms; Deny chest pain, dyspnea, headache(s), nausea, rash or vomiting Review of Systems Const: Denies: fever(s), chills or body aches Eyes: Denies: change in vision or blurry vision ENMT: Denies: throat pain or nasal congestion Card: Denies: chest pain or dyspnea on exertion Resp: Denies: dyspnea, productive cough or non-productive cough GI: Denies: abdominal pain, nausea or vomiting : Denies: difficulty urinating Musc: Denies: extremity pain Skin/Breast: Denies: rash Neuro: Reports: other (Complains of tingling in all extremities back neck and head); Denies: headache(s) Psych: Denies: anxiety or depression Dexter/Lymph: Denies: easy bruising PFSH ED PFSH: Social History Smoking and tobacco status: never smoked Physical Exam Const: COMMON NORMALS: no acute distress, average body habitus and patient oriented x3 HENMT: COMMON NORMALS: normocephalic HEAD & SCALP: normal to inspection and normocephalic FACE & SINUS: normal facial exam Eye: COMMON NORMALS: conjunctivae normal GENERAL EYE: appearance normal, both eyes and all related structures CONJUNCTIVA: Yes conjunctivae normal Neck/C-Spine: COMMON NORMALS: no JVD Chest: COMMONS NORMALS: normal inspection of the chest Resp: COMMON NORMALS: normal respiratory effort and clear to auscultation bilaterally AUSCULTATION: clear to auscultation bilaterally Cardio: COMMON NORMALS: no JVD, regular rate and regular rhythm RATE: regular rate RHYTHM: regular rhythm GI: COMMON NORMALS: Normal to inspection, nondistended, normoactive bowel sounds present Extremity: COMMON NORMALS: normal to inspection and full ROM Neuro: COMMON NORMALS: patient oriented x3 Course Vital Signs: Vital signs: Vital Signs Temperature 98.7 F 07/19/19 15:03 Pulse Rate 79 07/19/19 15:03 Respiratory Rate 18 07/19/19 15:03 Blood Pressure 142/80 07/19/19 15:03 Pulse Oximetry 98 07/19/19 15:03 Discharge Plan Discharge Prescriptions: No Action clonidine HCl 0.1 mg Tablet 0.1 mg PO BID RF: 0 liothyronine [Cytomel] 5 mcg Tablet 10 mcg PO DAILY RF: 0 dicyclomine 20 mg Tablet 20 mg PO QID PRN (Reason: IBS) RF: 0 pantoprazole [Protonix] 40 mg Tablet,Delayed Release (Dr/Ec) 40 mg PO DAILY RF: 0 fluticasone propionate [Flonase Allergy Relief] 50 mcg/actuation [place],Suspension 2 spray INTRANASAL DAILY RF: 0 levocetirizine [Xyzal] 5 mg Tablet 5 mg PO DAILY RF: 0 venlafaxine 75 mg Tablet Extended Release 24 Hr 75 mg PO DAILY RF: 0 meclizine 25 mg tablet 25 mg PO TID PRN (Reason: dizziness) Qty: 20 RF: 0 Zofran 4 mg tablet 4 mg PO Q6H PRN (Reason: nausea and vomiting) Qty: 20 RF: 0 Coding Level of Care Code ED Financial Planning Analyst for Jaylen Rider
[2019-07-19 15:35] VITALS: RESP 18
[2019-07-19 15:40] LABS: Basophils % 0.6 %; Eosinophils # 0.3 10^3/uL (0.0-0.8); Eosinophils % 3.7 %; Hematocrit 43.9 % (42.0-52.0); Hemoglobin 14.4 g/dL (11.7-16.6); Lymphocytes # 1.5 10^3/uL (0.8-4.8); Lymphocytes % 21.5 %; Mean Corpuscular HGB Conc 32.8 g/dL (30.0-36.0); Mean Corpuscular Hemoglobin 28.3 pg (28.0-34.0); Mean Corpuscular Volume 86.4 fL (80-94); Mean Platelet Volume 11.8 fL (7.4-10.4); Monocytes # 0.6 10^3/uL (0.2-0.9); Monocytes % 8.4 %; Neutrophils # 4.6 10^3/uL (1.8-7.7); Neutrophils % 65.5 %; Nucleated Red Blood Cells % 0 %; Platelet Count 268 10^3/cmm (130-400); Red Blood Count 5.08 10^6/uL (4.1-5.3); Red Cell Distribution Width 12.6 % (12.1-15.1)
[2019-07-19] MEDS: LORazepam 1 mg Tablet PO (16:05)
[2019-07-19 16:07] LABS: Alanine Aminotransferase 29 U/L (0-41); Albumin Level 4.4 g/dL (3.5-5.2); Alkaline Phosphatase 90 IU/L (40-130); Anion Gap 16.4 (5-19); Aspartate Amino Transferase 21 U/L (0-40); Blood Urea Nitrogen 6 mg/dL (6-20); Calcium 9.8 mg/dL (8.5-10.5); Carbon Dioxide 25 mmol/L (22-29); Chloride 101 mmol/L (98-107); Globulin 3.6 g/dL (1.3-4.6); Glomerular Filtration Rate 98.4 mL/min (90-130); Glucose 102 mg/dL (65-115); Osmolality Calculated 282 mOsm/kg (285-295); Potassium 4.4 mmol/L (3.5-5.1); Sodium 138 mmol/L (136-145); Total Bilirubin 0.3 mg/dL (0.15-1.2)
[2019-07-19 16:47] VITALS: RESP 18; TEMP 37.1; O2SAT 98
== END 2019-07-19 16:48 | disposition home or self-care (01) ==
PROVIDERS: Emergency Provider Nurse Practitioner Family; PCP Family Medicine
DX: R20.0 Anesthesia of skin (principal)
CPT/HCPCS: 12345; 36415; 80053; 85025; 99281; 99283

== ENCOUNTER 2020-02-03 13:01 | Outpatient (CLI) | payer MEDICAID, SELFPAY ==
--- NOTE | 2020-02-03 13:22 | MR_ITS ---
WS: [id number] MRI CERVICAL SPINE NONCONTRAST TECHNIQUE: Sagittal T1, T2 and STIR imaging. Axial T2, gradient, and fiesta imaging. CLINICAL INFORMATION: CERVICAL RADICULOPATHY COMPARISON: None. FINDINGS: Straightening of the normal cervical lordosis. Cord signal is normal. No significant central canal na rrowing. C2-C3: Normal. C3-C4: Minimal disc bulging. Mild left and no significant right foraminal narrowing. Mild facet arthr opathy. Spinal canal is patent. C4-C5: Minimal disc bulging. Mild left greater than right bony foraminal narrowing. Mild facet arthro acosta. Spinal canal is patent. C5-C6: Mild disc bulging with osteophytic ridging. Mild left greater than right foraminal narrowing. Mild facet arthropathy. Spinal canal is patent. C6-C7: Right pericentral disc protrusion with slight contact cervical cord. Mild central canal stenos is. Mild to moderate bilateral foraminal narrowing. C7-T1: Mild osteophytic ridging. Mild right and no significant left foraminal narrowing. Spinal canal is patent. MR/MR cervical spin wo con* [id number] IMPRESSION: 1. Straightening of the normal cervical lordosis. Cord signal is normal. 2. Small right pericentral protrusion C6-C7 with slight contact the cervical c ord. Mild central canal stenosis. Mild to moderate bilateral foraminal narrowin g at this level. 3. Mild left C4-C5 and left C5-C6 bony foraminal narrowing.
== END 2020-02-03 13:02 | disposition home or self-care (01) ==
PROVIDERS: PCP Family Medicine; Visit Provider Family Medicine
DX: M54.12 Radiculopathy, cervical region (principal); M50.223 Other cervical disc displacement at C6-C7 level
CPT/HCPCS: 72141

== ENCOUNTER → 2020-03-09 16:14 | Outpatient (BNVA) | payer MEDICAID, SELFPAY | PROVIDERS: PCP Family Medicine; Visit Provider Orthopaedic Surgery | DX: M54.9 Dorsalgia, unspecified (principal) | CPT/HCPCS: 72050 ==

== ENCOUNTER → 2020-05-31 08:11 | Outpatient (BNVA) | payer MEDICAID, SELFPAY | PROVIDERS: PCP Family Medicine; Visit Provider Specialist | DX: M47.22 Other spondylosis with radiculopathy, cervical region (principal); R20.0 Anesthesia of skin; R20.2 Paresthesia of skin | CPT/HCPCS: 95885; 95910; 99202 ==

== ENCOUNTER 2020-08-15 14:38 | Emergency (ER) | payer MEDICAID, SELFPAY ==
[2020-08-15 15:56] VITALS: BP 151/87; PULSE 81; RESP 18; TEMP 36.7; O2SAT 96; BMI 35.3
[2020-08-15] MEDS: diphenhydrAMINE 50 mg/mL SDV 1mL IVP (16:40)
[2020-08-15] MEDS: metoclopramide 5 mg/mL SDV 2 mL 10 MG IVP (16:40)
[2020-08-15] MEDS: ketorolac 30 mg/mL INJ IVP (16:40)
[2020-08-15] MEDS: sodium chloride 0.9% 1,000 ML 999 ML IV ×2 (16:40)
[2020-08-15 16:50] LABS: Basophils % 0.7 %; Eosinophils # 0.2 10^3/uL (0.0-0.8); Eosinophils % 2.6 %; Hematocrit 46.1 % (42.0-52.0); Hemoglobin 15.4 g/dL (11.7-16.6); Lymphocytes # 1.1 10^3/uL (0.8-4.8); Lymphocytes % 18.8 %; Mean Corpuscular HGB Conc 33.4 g/dL (30.0-36.0); Mean Corpuscular Hemoglobin 28.8 pg (28.0-34.0); Mean Corpuscular Volume 86.3 fL (80-94); Mean Platelet Volume 11.5 fL (7.4-10.4); Monocytes # 0.8 10^3/uL (0.2-0.9); Monocytes % 13.9 %; Neutrophils # 3.69 10^3/uL (1.8-7.7); Neutrophils % 63.5 %; Nucleated Red Blood Cells % 0 %; Platelet Count 199 10^3/cmm (130-400); Red Blood Count 5.34 10^6/uL (4.1-5.3); Red Cell Distribution Width 12.7 % (12.1-15.1); White Blood Count 5.8 10^3/uL (4.0-10.0)
[2020-08-15 17:23] LABS: Alanine Aminotransferase 37 U/L (0-41); Albumin Level 4.4 g/dL (3.5-5.2); Alkaline Phosphatase 94 IU/L (40-130); Anion Gap 14.9 (5-19); Aspartate Amino Transferase 27 U/L (0-40); Blood Urea Nitrogen 9 mg/dL (6-20); Calcium 9.1 mg/dL (8.5-10.5); Carbon Dioxide 26 mmol/L (22-29); Chloride 101 mmol/L (98-107); Creatinine Clr Calc Pharmacy 147.3893; Globulin 3.1 g/dL (1.3-4.6); Glomerular Filtration Rate 97.8 mL/min (90-130); Glucose 92 mg/dL (65-115); Osmolality Calculated 282 mOsm/kg (285-295); Potassium 4.9 mmol/L (3.5-5.1); Sodium 137 mmol/L (136-145); Total Bilirubin 0.3 mg/dL (0.15-1.2); Total Protein 7.5 g/dL (6.6-8.7)
[2020-08-15 17:31] VITALS: RESP 15
--- NOTE | 2020-08-15 17:40 | W.ED.HA ---
HPI - Headache General: Chief Complaint: Headache Stated Complaint: H/A X 4 DAYS, DIZZY, PRESSURE BEHIND EYES Time Seen by Provider: 08/15/20 16:16 Source: patient History of Present Illness: HPI Narrative: Patient with headache x1 day. States he has been working outside in the heat and drinking a lot of soda and tea and no water. Does have a history of migraines as a child. Denies any neck pain. Denies any fever. Denies any head trauma. Denies any numbness or tingling in the extremities. Denies headache being sudden onset. Denies his headache being the worst headache of his life. MD elicited complaint: headache Onset description: gradually Location: diffuse Severity: moderate Associated symptoms: Reports no associated symptoms; Deny chest pain, fever(s) or rash Treatments prior to arrival: none Review of Systems General: Reports: 10 or more systems reviewed and unremarkable except in HPI and below Const: Denies: fever(s) Eyes: Denies: change in vision ENMT: Denies: throat pain Card: Denies: chest pain Resp: Denies: dyspnea GI: Denies: abdominal pain : Denies: flank pain Musc: Denies: neck pain Skin/Breast: Denies: rash Neuro: Reports: headache(s) and dizziness; Denies: numbness in extremities, weakness in extremities, sensory changes, Slurred speech present or difficulty communicating thoughts [facility] ED PFSH: Medical History Cervical radiculopathy Social History Smoking and tobacco status: never smoked Second hand smoke exposure: No Alcohol intake: never Physical Exam Const: COMMON NORMALS: patient oriented x3 HENMT: COMMON NORMALS: normocephalic, atraumatic, hearing grossly normal bilaterally, external ears normal, EAC's normal, TM's normal bilaterally, Normal external nose present, Normal nasal mucous membranes and turbinates present, moist oral mucous membranes, oropharynx normal, dentition normal and gingiva normal HEAD & SCALP: normocephalic and atraumatic NOSE: Normal external nose present and Normal nasal mucous membranes and turbinates present EXTERNAL EAR: Yes external ears normal EXTERNAL AUDITORY CANAL: EAC's normal TYMPANIC MEMBRANE: TM's normal bilaterally Neck/C-Spine: COMMON NORMALS: full ROM, no lymphadenopathy, supple, no meningeal signs, Thyroid normal and No carotid bruits THYROID: Thyroid normal Lymph: LYMPHATIC: no lymphadenopathy noted Resp: COMMON NORMALS: normal respiratory effort, No retractions, No use of accessory muscles, clear to auscultation bilaterally and percussion normal AUSCULTATION: clear to auscultation bilaterally PERCUSSION: percussion normal GI: COMMON NORMALS: Normal to inspection, nondistended, normoactive bowel sounds present, Soft to palpation, non-tender, No hepatosplenomegaly present, no masses and no bruits PALPATION: Yes Soft to palpation and Yes No hepatosplenomegaly present Neuro: COMMON NORMALS: patient oriented x3, CN's II-XII intact bilaterally, moves all extremities, no focal motor deficits, no sensory deficits noted, deep tendon reflexes 2+ bilaterally and gait normal MENINGEAL SIGNS: Yes no meningeal signs Course Vital Signs: Vital signs: Vital Signs Temperature 98.1 F 08/15/20 15:56 Pulse Rate 81 08/15/20 15:56 Respiratory Rate 18 08/15/20 15:56 Blood Pressure 151/87 08/15/20 15:56 Pulse Oximetry 96 08/15/20 15:56 MDM - Headache MDM Narrative: Medical decision making narrative: Patient symptoms seem more consistent with just dehydration and normal headache. No indication of intracranial hemorrhage or infection such as meningitis. Patient symptoms improved after IV fluids and treatment. Discussed with patient that he needs to drink more water and less soda. Lab Data: Labs: Lab Results 08/15/20 08/15/20 Range/Units 16:45 16:45 WBC 5.8 (4.0-10.0) 10^3/ uL RBC 5.34 H (4.1-5.3) 10^6/u L Hgb 15.4 (11.7-16.6) g/dL Hct 46.1 (42.0-52.0) % MCV 86.3 (80-94) fL MCH 28.8 (28.0-34.0) pg MCHC 33.4 (30.0-36.0) g/dL RDW 12.7 (12.1-15.1) % Plt Count 199 (130-400) 10^3/c mm MPV 11.5 H (7.4-10.4) fL Neut % (Auto) 63.5 % Lymph % (Auto) 18.8 % Chambers % (Auto) 13.9 % Eos % (Auto) 2.6 % Baso % (Auto) 0.7 % Neut # (Auto) 3.69 (1.8-7.7) 10^3/u L Lymph # (Auto) 1.1 (0.8-4.8) 10^3/u L Chambers # (Auto) 0.8 (0.2-0.9) 10^3/u L Eos # (Auto) 0.2 (0.0-0.8) 10^3/u L Baso # (Auto) 0.0 (0.0-0.1) 10^3/u L Nucleated RBC % (a uto) 0 % Nucleated RBCs # 0.0 /100WBC Sodium 137 (136-145) mmol/L Potassium 4.9 (3.5-5.1) mmol/L Chloride 101 (98-107) mmol/L Carbon Dioxide 26 (22-29) mmol/L Anion Gap 14.9 (5-19) BUN 9 (6-20) mg/dL Creatinine 0.9 (0.7-1.2) mg/dL GFR Calculation 97.8 (90-130) mL/min Glucose 92 (65-115) mg/dL Calculated Osmolal ity 282 L (285-295) mOsm/k g Calcium 9.1 (8.5-10.5) mg/dL Total Bilirubin 0.3 (0.15-1.2) mg/dL AST 27 (0-40) U/L ALT 37 (0-41) U/L Alkaline Phosphata se 94 (40-130) IU/L Total Protein 7.5 (6.6-8.7) g/dL Albumin 4.4 (3.5-5.2) g/dL Globulin 3.1 (1.3-4.6) g/dL Discharge Plan Discharge Prescriptions: No Action metoprolol succinate 25 mg tablet extended release 24 hr 25 mg PO DAILY RF: 0 chlorthalidone 25 mg tablet 25 mg PO DAILY RF: 0 polyethylene glycol 3350 [Miralax] 17 gram/dose powder 17 g PO BID RF: 0 clonidine HCl 0.1 mg Tablet 0.1 mg PO BID RF: 0 Hold Instructions: Resume on 07/25/19. liothyronine [Cytomel] 5 mcg Tablet 10 mcg PO DAILY RF: 0 dicyclomine 20 mg Tablet 20 mg PO QID PRN (Reason: IBS) RF: 0 pantoprazole [Protonix] 40 mg Tablet,Delayed Release (Dr/Ec) 40 mg PO DAILY RF: 0 fluticasone propionate [Flonase Allergy Relief] 50 mcg/actuation [place],Suspension 2 spray INTRANASAL DAILY RF: 0 levocetirizine [Xyzal] 5 mg Tablet 5 mg PO DAILY RF: 0 venlafaxine 75 mg Tablet Extended Release 24 Hr 75 mg PO DAILY RF: 0 meclizine 25 mg tablet 25 mg PO TID PRN (Reason: dizziness) Qty: 20 RF: 0 Ativan 1 mg tablet 1 mg PO BID Qty: 10 RF: 0 Zofran 4 mg tablet 4 mg PO Q6H PRN (Reason: nausea and vomiting) Qty: 20 RF: 0 Coding Level of Care Code ED Branch Coordinator for Chg Fwd Exam Detailed
[2020-08-15 18:34] VITALS: RESP 15
== END 2020-08-15 18:34 | disposition home or self-care (01) ==
PROVIDERS: Emergency Provider Emergency Medicine; PCP Family Medicine
DX: R51.9 Headache, unspecified (principal)
CPT/HCPCS: 80053; 85025; 96361; 96374; 96375; 99284; J1200; J1885; J2765; J7030

== ENCOUNTER 2020-08-17 18:58 | Emergency (ER) | payer MEDICAID, SELFPAY ==
[2020-08-17 19:03] VITALS: BP 147/96; PULSE 95; RESP 18; TEMP 36.8; O2SAT 100; BMI 33.9
--- NOTE | 2020-08-17 19:14 | XRR_ITS ---
PROCEDURE INFORMATION: Exam: XR Chest Exam date and time: 08/17/2020 7:14 PM Age: 30 years old Clinical indication: Sternal or substernal pain; Additional info: Cp TECHNIQUE: Imaging protocol: XR of the chest. Views: 1 view. COMPARISON: CR Chest 2 views* [id number] 11/07/2016 4:24 PM FINDINGS: Lungs: Unremarkable. No consolidation. Pleural spaces: Unremarkable. No pleural effusion. No pneumothorax. Heart/Mediastinum: Unremarkable. No cardiomegaly. Bones/joints: Unremarkable. XR/XR chest 1V portable [id number] IMPRESSION: No acute findings.
--- NOTE | 2020-08-17 19:15 | W.ED.GENADLT ---
HPI - General Adult General: Chief complaint: General Medical Stated complaint: Hypertension Time Seen by Provider: 08/17/20 19:06 Source: patient and family (mother) Mode of arrival: ambulatory Limitations: no limitations History of Present Illness: HPI narrative: Patient is a 30 year old male with a recent history of hypertension who recently started antihypertensives. Patient was seen in this emergency department 2 days ago for headache and was told he was dehydrated. He said the headache has persisted. He has associated photophobia and noise also makes the headaches worse. He checks his blood pressure at home today and it was 180/103 and he was concerned and so came into the emergency department to be evaluated. Pain Consistency: constant Relieving factors: none Exacerbating factors: none Associated symptoms: Reports headache(s), malaise and nausea; Deny chest pain, confusion, cough, diaphoresis, decreased appetite, dyspnea, fevers/chills, rash, palpitations, seizures, short of breath, syncope, vomiting or weakness Treatments prior to arrival: none Review of Systems General: Reports: 10 or more systems reviewed and unremarkable except in HPI and below Const: Reports: malaise; Denies: diaphoresis Card: Denies: chest pain, palpitations or syncope Resp: Denies: dyspnea GI: Reports: nausea; Denies: vomiting Skin/Breast: Denies: rash Neuro: Reports: headache(s); Denies: confusion [facility] ED PFSH: Medical History Cervical radiculopathy Social History Smoking and tobacco status: never smoked Second hand smoke exposure: No Alcohol intake: never Physical Exam Const: COMMON NORMALS: no acute distress, average body habitus, patient oriented x3, no limitations, healthy appearing, alert and well nourished HENMT: COMMON NORMALS: normocephalic, atraumatic and moist oral mucous membranes HEAD & SCALP: normocephalic and atraumatic Neck/C-Spine: COMMON NORMALS: no meningeal signs and no JVD Resp: COMMON NORMALS: normal respiratory effort, No retractions, No use of accessory muscles, clear to auscultation bilaterally and percussion normal AUSCULTATION: clear to auscultation bilaterally PERCUSSION: percussion normal Cardio: COMMON NORMALS: no JVD, regular rate, regular rhythm, S1 normal heart sound present, S2 normal heart sound present, No gallops present (Cardio), No clicks present (Cardio), No murmurs present (Cardio), No rub (Cardio) and Peripheral pulses 2+ throughout RATE: regular rate RHYTHM: regular rhythm HEART SOUNDS: S1 normal heart sound present and S2 normal heart sound present PERIPHERAL PULSES: Peripheral pulses 2+ throughout GI: COMMON NORMALS: Normal to inspection, nondistended, normoactive bowel sounds present, Soft to palpation, non-tender, No hepatosplenomegaly present, no masses and no bruits PALPATION: Yes Soft to palpation and Yes No hepatosplenomegaly present Extremity: COMMON NORMALS: normal to inspection, full ROM, capillary refill normal, no calf tenderness and no pedal edema Neuro: COMMON NORMALS: patient oriented x3 SENSORIUM/ORIENTATION: Yes alert MENINGEAL SIGNS: Yes no meningeal signs Skin: COMMON NORMALS: no rashes or lesions noted, no wounds, turgor normal, no jaundice, no petechiae and no mottling GENERAL SKIN EXAM: no rashes or lesions noted and turgor normal Course Reevaluation(s): Reevaluation #1: Headache has resolved. Blood pressure much improved. Discussed his lab and imaging findings with him. Negative for acute findings. Explained that he most likely has a migraine and that is what made his blood pressure worse. He is discharged home with no new orders. He voiced understanding and is in agreement with the plan. Time: 20:33 Vital Signs: Vital signs: Vital Signs Temperature 98.2 F 08/17/20 19:03 Pulse Rate 76 08/17/20 20:39 Respiratory Rate 16 08/17/20 20:39 Blood Pressure 140/75 08/17/20 20:39 Pulse Oximetry 98 08/17/20 20:39 MDM - General Adult MDM Narrative: Medical decision making narrative: 30-year-old male who presents to the emergency department with symptoms consistent with a migraine headache. Headache improved following administration of Benadryl and Reglan. Blood pressure improved subsequently. He initially presented to the emergency department because he had concerns for his blood pressure. Evaluation unremarkable and he is discharged home with no new orders Medical Records: Attestation: I reviewed the patient's medical records. Lab Data: Attestation: I reviewed the patient's lab results. Labs: Lab Results 08/17/20 08/17/20 08/17/20 Range/Units 19:25 19:25 19:25 WBC 5.1 (4.0-10.0) 10^3/ uL RBC 5.10 (4.1-5.3) 10^6/u L Hgb 14.5 (11.7-16.6) g/dL Hct 44.2 (42.0-52.0) % MCV 86.7 (80-94) fL MCH 28.4 (28.0-34.0) pg MCHC 32.8 (30.0-36.0) g/dL RDW 12.6 (12.1-15.1) % Plt Count 218 (130-400) 10^3/c mm MPV 11.4 H (7.4-10.4) fL Neut % (Auto) 49.8 % Lymph % (Auto) 28.5 % Martin % (Auto) 15.6 % Eos % (Auto) 4.7 % Baso % (Auto) 1.0 % Neut # (Auto) 2.52 (1.8-7.7) 10^3/u L Lymph # (Auto) 1.4 (0.8-4.8) 10^3/u L Martin # (Auto) 0.8 (0.2-0.9) 10^3/u L Eos # (Auto) 0.2 (0.0-0.8) 10^3/u L Baso # (Auto) 0.1 (0.0-0.1) 10^3/u L Nucleated RBC % (a uto) 0 % Nucleated RBCs # 0.0 /100WBC Sodium 138 (136-145) mmol/L Potassium 4.5 (3.5-5.1) mmol/L Chloride 101 (98-107) mmol/L Carbon Dioxide 27 (22-29) mmol/L Anion Gap 14.5 (5-19) BUN 6 (6-20) mg/dL Creatinine 0.9 (0.7-1.2) mg/dL GFR Calculation 97.8 (90-130) mL/min Glucose 85 (65-115) mg/dL Calculated Osmolal ity 283 L (285-295) mOsm/k g Calcium 9.5 (8.5-10.5) mg/dL Total Bilirubin 0.2 (0.15-1.2) mg/dL AST 20 (0-40) U/L ALT 31 (0-41) U/L Alkaline Phosphata se 98 (40-130) IU/L Troponin T Baselin e 6 (0-15) ng/L NT-Pro-B Natriuret Pep 57 (0-125) pg/mL Total Protein 6.9 (6.6-8.7) g/dL Albumin 4.4 (3.5-5.2) g/dL Globulin 2.5 (1.3-4.6) g/dL TSH 3.58 (0.27-4.20) uIU/ mL Imaging Data^: CXR: Attestation: I personally reviewed and interpreted this imaging study as follows: Radiologist's impression: [address] [id number] ReportSigned Patient: Bar Rodrigues #: [id number]: [id number]#:[id number]/Sex: 30 / MADM Date: 08/17/20Loc: ERRoom/Bed:Attending Dr: Ordering Provider/Ordering MD: Winsome Wallace MD, [facility] [place] Date of Service: 08/17/20 Procedure(s): XR chest 1V portable [id number] Accession Number(s): [id number] Report Number: [id number] PROCEDURE INFORMATION: Exam: XR Chest Exam date and time: 08/17/2020 7:14 PM Age: 30 years old Clinical indication: Sternal or substernal pain; Additional info: Cp TECHNIQUE: Imaging protocol: XR of the chest. Views: 1 view. COMPARISON: CR Chest 2 views* [id number] 11/07/2016 4:24 PM FINDINGS: Lungs: Unremarkable. No consolidation. Pleural spaces: Unremarkable. No pleural effusion. No pneumothorax. Heart/Mediastinum: Unremarkable. No cardiomegaly. Bones/joints: Unremarkable. XR/XR chest 1V portable [id number] IMPRESSION: No acute findings. Dictated By:Radha Flanagan By:Radha Flanagan Date/Time:08/17/20 2009DD/ 07 EKG Data^: EKG 1: Attestation: I personally reviewed and interpreted this EKG as follows: EKG interpretation date: 08/17/20 EKG interpretation time: 19:23 Prior EKG tracings: not available for review Interpretation: Sinus rhythm. Heart rate [address] changes Computer generated interpretation: Chest X-Ray 08/17/20 19:14 IMPRESSION: No acute findings. Discharge Plan Discharge Patient Disposition: Home Clinical Impression: Migraine Qualifiers: Migraine type: without aura Status migrainosus presence: without status migrainosus Intractability: not intractable Qualified Code(s): G43.009 - Migraine without aura, not intractable, without status migrainosus Condition: Stable Prescriptions: Continued metoprolol succinate 25 mg tablet extended release 24 hr 25 mg PO DAILY RF: 0 chlorthalidone 25 mg tablet 25 mg PO DAILY RF: 0 polyethylene glycol 3350 [Miralax] 17 gram/dose powder 17 g PO BID RF: 0 clonidine HCl 0.1 mg Tablet 0.1 mg PO BID RF: 0 Hold Instructions: Resume on 07/25/19. liothyronine [Cytomel] 5 mcg Tablet 10 mcg PO DAILY RF: 0 dicyclomine 20 mg Tablet 20 mg PO QID PRN (Reason: IBS) RF: 0 pantoprazole [Protonix] 40 mg Tablet,Delayed Release (Dr/Ec) 40 mg PO DAILY RF: 0 venlafaxine 75 mg Tablet Extended Release 24 Hr 75 mg PO DAILY RF: 0 lorazepam [Ativan] 1 mg tablet 1 mg PO BID Qty: 10 RF: 0 ondansetron HCl [Zofran] 4 mg tablet 4 mg PO Q6H PRN (Reason: nausea and vomiting) Qty: 20 RF: 0 Discharge Orders: Discharge ED (Routine); Ordered 08/17/20 Ordered By: Winsome Wallace Referrals: Darshan Bonilla MD [Primary Care Provider] - 1-3 days Discharge Diet: Low Salt Discharge Activity: Increase activity as tolerated Patient Instructions: Migraine Headache (ED) Activity Restrictions/Additional Instructions: Return for any new or worsening symptoms. Follow-up with your primary care provider tomorrow as scheduled. Continue your home medications. Coding Level of Care Code ED Crystal Syrup Maker for Chg Fwd Exam Comprehensive
[2020-08-17] MEDS: metoclopramide 5 mg/mL SDV 2 mL 10 MG IVP (19:31)
[2020-08-17] MEDS: diphenhydrAMINE 50 mg/mL SDV 1mL IVP (19:36)
[2020-08-17 19:39] VITALS: BP 146/91; PULSE 90; RESP 18; O2SAT 99
[2020-08-17 19:40] LABS: Basophils # 0.1 10^3/uL (0.0-0.1); Eosinophils # 0.2 10^3/uL (0.0-0.8); Eosinophils % 4.7 %; Hematocrit 44.2 % (42.0-52.0); Hemoglobin 14.5 g/dL (11.7-16.6); Lymphocytes # 1.4 10^3/uL (0.8-4.8); Lymphocytes % 28.5 %; Mean Corpuscular HGB Conc 32.8 g/dL (30.0-36.0); Mean Corpuscular Hemoglobin 28.4 pg (28.0-34.0); Mean Corpuscular Volume 86.7 fL (80-94); Mean Platelet Volume 11.4 fL (7.4-10.4); Monocytes # 0.8 10^3/uL (0.2-0.9); Monocytes % 15.6 %; Neutrophils # 2.52 10^3/uL (1.8-7.7); Neutrophils % 49.8 %; Nucleated Red Blood Cells % 0 %; Platelet Count 218 10^3/cmm (130-400); Red Cell Distribution Width 12.6 % (12.1-15.1); White Blood Count 5.1 10^3/uL (4.0-10.0)
[2020-08-17 20:15] LABS: Troponin(5th) Baseline 6 ng/L (0-15)
[2020-08-17 20:26] LABS: Alanine Aminotransferase 31 U/L (0-41); Albumin Level 4.4 g/dL (3.5-5.2); Alkaline Phosphatase 98 IU/L (40-130); Anion Gap 14.5 (5-19); Aspartate Amino Transferase 20 U/L (0-40); Blood Urea Nitrogen 6 mg/dL (6-20); Calcium 9.5 mg/dL (8.5-10.5); Carbon Dioxide 27 mmol/L (22-29); Chloride 101 mmol/L (98-107); Globulin 2.5 g/dL (1.3-4.6); Glomerular Filtration Rate 97.8 mL/min (90-130); Glucose 85 mg/dL (65-115); NT Pro B Type Natriuretic Pept 57 pg/mL (0-125); Osmolality Calculated 283 mOsm/kg (285-295); Potassium 4.5 mmol/L (3.5-5.1); Sodium 138 mmol/L (136-145); Thyroid Stimulating Hormone 3.58 uIU/mL (0.27-4.20); Total Bilirubin 0.2 mg/dL (0.15-1.2); Total Protein 6.9 g/dL (6.6-8.7)
[2020-08-17 20:33] VITALS: BP 128/82
[2020-08-17 20:39] VITALS: BP 140/75; PULSE 76; RESP 16; O2SAT 98
== END 2020-08-17 20:42 | disposition home or self-care (01) ==
PROVIDERS: Emergency Provider Family Medicine; PCP Family Medicine
DX: G43.009 Migraine without aura, not intractable, without status migrainosus (principal); I10 Essential (primary) hypertension
CPT/HCPCS: 71045; 80053; 83880; 84443; 84484; 85025; 96374; 96375; 99284; J1200; J2765

== ENCOUNTER → 2021-11-03 12:46 | Outpatient (BNVA) | payer MEDICAID, SELFPAY | PROVIDERS: PCP Family Medicine; Visit Provider Internal Medicine Cardiovascular Disease | DX: R55 Syncope and collapse (principal); I49.1 Atrial premature depolarization; I49.3 Ventricular premature depolarization | CPT/HCPCS: 93270 ==

== ENCOUNTER 2022-04-17 01:32 | Emergency (ER) | payer MEDICAID, SELFPAY ==
[2022-04-17 01:37] VITALS: BP 144/98; PULSE 64; RESP 16; TEMP 36.5; O2SAT 99; BMI 36.9
--- NOTE | 2022-04-17 01:40 | ED_ITS ---
HPI - Dental/Oral General: Chief complaint: Dental/Oral Stated complaint: Toothache Time Seen by Provider: 04/17/22 01:34 History of Present Illness: 32-year-old male patient comes in today with complaints of right lower jaw pain. Patient reports pain has worsened over the last 2 weeks. Patient appears nontoxic. Patient appears in moderate pain. Associated symptoms: Denies fever(s) Review of Systems Const: Denies: fever(s) ENMT: Reports: mouth pain Card: Denies: chest pain Resp: Denies: dyspnea Musc: Denies: extremity pain Skin/Breast: Denies: rash PFSH ED PFSH: Medical History Anxiety Asthma BMI 34.0-34.9,adult Cervical radiculopathy Depression History of eustachian tube dysfunction Hypothyroidism IBS (irritable bowel syndrome) Spina bifida aperta of cervical spine Surgical History History of adenectomy History of cholecystectomy History of knee surgery Family History Father Cancer wagners granulomus Other Diabetes Hyperlipidemia Hypertension Lung disease Stroke Denies family history of CAD (coronary artery disease) Clotting disorder Dementia Psychiatric illness Chronic kidney disease (CKD) Anesthesia complication Bleeding disorder Social History Smoking and tobacco status: never smoked Alcohol intake: never Lives independently: Yes Marital status: Number of children: 4 Current occupational status: disabled Current gender identity: Male Physical Exam Const: COMMON NORMALS: alert HENMT: COMMON NORMALS: normocephalic HEAD & SCALP: normocephalic TEETH & GINGIVA: Yes abnormal tooth and associated gingiva (Decayed third and second molar right lower jaw. Gingival redness) Neck/C-Spine: COMMON NORMALS: full ROM Chest: COMMONS NORMALS: normal inspection of the chest Resp: COMMON NORMALS: normal respiratory effort Cardio: COMMON NORMALS: regular rate RATE: regular rate Back/Pelvis: COMMON NORMALS: thoracic and lumbar spine normal to inspection Extremity: COMMON NORMALS: full ROM Neuro: SENSORIUM/ORIENTATION: Yes alert Skin: COMMON NORMALS: turgor normal GENERAL SKIN EXAM: turgor normal Course Vital Signs: Vital signs: Vital Signs Temperature 97.7 F 04/17/22 01:37 Pulse Rate 64 04/17/22 01:37 Respiratory Rate 16 04/17/22 01:37 Blood Pressure 144/98 04/17/22 01:37 Pulse Oximetry 99 04/17/22 01:37 Oxygen Delivery Me thod 04/17/22 01:37 MDM - Dental/Oral Medical Decision Making 32-year-old male patient comes in today for complaints of right lower jaw pain. Significant dental decay of the second and third molar on the right lower jaw. Surrounding gingival redness and swelling is noted. Posterior pharynx is symmetrical and no airway compromise. Lungs are clear to auscultation. No edema. Vital signs are normal. Differential diagnosis includes but not limited to dental abscess, tooth ache, dental caries, cellulitis of mouth. No signs of severe illness or injury is noted. We will start patient on Augmentin 875 1 tablet 2 times a day for 7 days. Patient was given 30 mg of ketorolac in the ER for his pain. Patient was written for 7 tablets of hydrocodone for severe pain. Patient reported understanding of care plan and need for follow-up or return to the ER. Discharge Plan Discharge Patient Disposition: Home Clinical Impression: Dental abscess, Toothache Condition: Stable Prescriptions: New hydrocodone-acetaminophen 5-325 mg tablet 1 tab PO Q8H PRN (Reason: pain (scale score 7-10)) Qty: 7 0RF Continued amoxicillin-pot clavulanate 875-125 mg tablet 1 tab PO BID Qty: 14 0RF No Action Atrovent HFA 17 mcg/actuation HFA aerosol inhaler 2 puff inhalation BID Qty: 12.9 4RF metoprolol succinate 25 mg tablet extended release 24 hr 25 mg PO DAILY Qty: 90 1RF liothyronine [Cytomel] 5 mcg tablet 10 mcg PO DAILY Qty: 90 1RF levocetirizine [Xyzal] 5 mg tablet 5 mg PO DAILY Qty: 30 0RF triamcinolone acetonide [Nasacort] 55 mcg aerosol,spray 1 spray intranasal DAILY Qty: 16.9 0RF Rx Instructions: administer into each nostril neomycin-polymyxin B-dexameth [Maxitrol] 3.5mg/mL-10,000 unit/mL-0.1 % drops,suspension 1 drp ophthalmic (eye) Q8H Qty: 5 0RF pantoprazole [Protonix] 40 mg Tablet,Delayed Release (Dr/Ec) 40 mg PO DAILY venlafaxine 75 mg Tablet Extended Release 24 Hr 75 mg PO DAILY Discharge Orders: Discharge ED (Routine); Ordered 04/17/22 Ordered By: Dawit Jaquez Referrals: Jacky Fleming MD [Primary Care Provider] - Discharge Diet: Usual diet Discharge Activity: Resume usual activity Patient Instructions: Toothache (ED) Activity Restrictions/Additional Instructions: Good oral care. Take antibiotics as directed. Drink plenty of water with medications. Use acetaminophen and ibuprofen to control pain. Use hydrocodone for severe pain. Follow-up with primary care for further instructions. Coding Level of Care Code ED Quality Analyst for Jaylen Rider
[2022-04-17] MEDS: amoxicillin-clav 875-125 mg Tablet 1 TAB PO (01:53)
[2022-04-17] MEDS: ketorolac 30 mg/mL INJ IM (01:53)
== END 2022-04-17 02:00 | disposition home or self-care (01) ==
PROVIDERS: Emergency Provider Nurse Practitioner Family; PCP Family Medicine
DX: K04.7 Periapical abscess without sinus (principal); E03.9 Hypothyroidism, unspecified; J45.909 Unspecified asthma, uncomplicated
CPT/HCPCS: 96372; 99284; J1885

== ENCOUNTER → 2022-08-16 16:14 | Outpatient (BNVA) | payer MEDICAID, SELFPAY | PROVIDERS: PCP Family Medicine; Visit Provider Family Medicine | DX: E03.9 Hypothyroidism, unspecified | CPT/HCPCS: 84439; 84443 ==

== ENCOUNTER → 2022-08-22 15:16 | Outpatient (BNVA) | payer MEDICAID, SELFPAY | PROVIDERS: PCP Family Medicine; Visit Provider Otolaryngology | DX: J34.2 Deviated nasal septum (principal); J34.89 Other specified disorders of nose and nasal sinuses; J34.3 Hypertrophy of nasal turbinates; R04.0 Epistaxis | CPT/HCPCS: 99204 ==

== ENCOUNTER 2022-09-12 10:20 | Day surgery (SDC) | payer MEDICAID, SELFPAY ==
[2022-09-12] VITALS (13 sets, daily range): BP systolic 149–188; BP diastolic 90–117; PULSE 62–98; RESP 16–19; TEMP 36.1–36.5; O2SAT 94–98
[2022-09-12] MEDS: sodium chloride 0.9% 1,000 ML 30 ML IV (10:51)
--- NOTE | 2022-09-12 10:52 | ANES.PREANE2 ---
Pre-Anesthetic Assessment Height/Weight: Height 3.48 m Weight 114.759 kg Temp Pulse Resp BP Pulse Ox O2 Del Method 97.6 F 64 18 149/98 98 Room Air 09/12/22 10:35 09/12/22 10:35 09/12/22 10:35 09/12/22 10:35 09/12/22 10:35 09/12/22 10:35 Preop Diagnosis: Nasal obstruction with deviated nasal septum and turbinate hypertrophy Operation Date: 09/12/22 12:00 Proposed Procedures p [id number] - septoplasty with turbinate reduction J34.3,R04.0,J34.2(Not Applicable) - Calderon Root MD s Turbinate Reduction(Not Applicable) - Calderon Root MD Familial anesthetic complications: SHivering Was Beta Meme taken within 24 hours: N/A Was Clonidine taken within 24 hours: N/A Last intake: Intake Last Liquid Date 09/11/22 Last Liquid Time 23:00 Last Solid Date 09/11/22 Last Solid Time 23:00 Social No alcohol Exam alert, oriented x 3, clear to auscultation bilaterally and regular rate & rhythm Airway Mallampati: Class IV Dentition: full Pulmonary Asthma CV/HEM Hypertension Metabolic Morbid Obesity Neuropsych infantile febrile seizure Anesthetic Plan ASA status: 2 Anesthesia: General Risk of > 500 ml blood loss (7ml/kg in children): No Medications/Allergies Home Medications Medication Instructions Recorded Confirmed Last Taken Type pantoprazole 40 mg tablet,delayed 40 mg PO DAILY 05/26/19 09/11/22 09/11/22 History release (Protonix) venlafaxine 75 mg tablet,extended 75 mg PO DAILY 05/26/19 09/11/22 09/11/22 History release 24 hr ipratropium bromide 17 2 puff inhalation BID #12.9 grams 02/08/22 09/11/22 09/11/22 Rx mcg/actuation HFA aerosol inhaler (Atrovent HFA) metoprolol succinate 25 mg 25 mg PO DAILY #90 tabs 02/08/22 09/11/22 09/11/22 Rx tablet,extended release 24 hr fexofenadine 180 mg tablet 180 mg PO DAILY PRN Allergy 05/24/22 09/12/22 Unknown History ([place] Allergy) Symptoms liothyronine 5 mcg tablet (Cytomel) 10 mcg PO DAILY #90 tabs 08/15/22 09/11/22 09/11/22 Rx [id number] 3.5 1 drp ophthalmic (eye) Q8H PRN 09/11/22 09/11/22 Unknown History mg/mL-10,000 unit/mL-0.1% eye itchy eyes drops (Maxitrol) triamcinolone acetonide 55 mcg 1 spray intranasal DAILY PRN 09/11/22 09/11/22 Unknown History nasal spray aerosol (Nasacort) dryness Allergies Allergy/AdvReac Type Severity Reaction Status Date / Time ibuprofen Allergy ADR/ALGY-Pa Verified 09/12/22 10:31 lpitations prednisone Allergy ADR-Drowsy Verified 09/12/22 10:31 amlodipine AdvReac Intermediate abdominal Verified 09/12/22 10:31 pain gabapentin AdvReac Intermediate made him Verified 09/12/22 10:31 sick lisinopril AdvReac Intermediate nausea and Verified 09/12/22 10:31 vomiting Current Medications Generic Name Dose Route Start Last Admin Trade Name Freq PRN Reason Stop Dose Admin Sodium Chloride 1,000 mls @ 30 mls/hr 09/12/22 10:30 09/12/22 10:51 Sodium Chloride 0.9% IV 09/13/22 10:29 30 mls/hr .Q24H CICI Administration PFSH Anesthesia Medical History Anxiety Asthma BMI 34.0-34.9,adult Cervical radiculopathy Depression History of eustachian tube dysfunction Hypothyroidism IBS (irritable bowel syndrome) Spina bifida aperta of cervical spine Surgical History History of adenectomy History of cholecystectomy History of knee surgery Family History Father Cancer wagners granulomus Other Diabetes Hyperlipidemia Hypertension Lung disease Stroke Denies family history of CAD (coronary artery disease) Clotting disorder Dementia Psychiatric illness Chronic kidney disease (CKD) Anesthesia complication Bleeding disorder Social History Smoking and tobacco status: never smoked Alcohol intake: never Substance/Drug Use: never Lives independently: Yes Marital status: Number of children: 4 Current occupational status: disabled Current gender identity: Male Data Anesthesia Cardiac Studies: Cardiac Event Monitor 11/03/21
[2022-09-12] MEDS: ipratropium 0.5 mg/2.5 mL Neb INHALATION (11:10)
--- NOTE | 2022-09-12 11:33 | W.PM.OPSUD ---
Surgery/Procedure H&P Update DATE OF PROCEDURE: September 12, 2022 DATE H&P PERFORMED: 08/22/22 H&P UPDATE INFORMATION: I have reviewed H&P completed within last 30 days, I have examined patient prior to procedure and No changes to prior documentation CHANGES TO PREVIOUS DOCUMENTATION: No changes PREOP DIAGNOSIS: Nasal obstruction with deviated nasal septum and turbinate hypertrophy PRIMARY INDICATION FOR PROCEDURE: Nasal obstruction with deviated nasal septum and turbinate hypertrophy PLANNED PROCEDURE: Operation Date: 09/12/22 12:00 Proposed Procedures p [id number] - septoplasty with turbinate reduction J34.3,R04.0,J34.2(Not Applicable) - Calderon Root MD s Turbinate Reduction(Not Applicable) - Calderon Root MD
[2022-09-12] MEDS: ceFAZolin 2,000 MG in sodium chloride 0.9% (plus) 50 ML 100 MG IV (12:28)
[2022-09-12] MEDS: lidocaine-epi 2% 1.7mL Cartridge (OR Only) 10.2 ML XX (12:54)
--- NOTE | 2022-09-12 12:54 | SUR.OPER ---
1228 noticed scratch at right lower nostril when wheeling pt to OR room. dry scab.
[2022-09-12] MEDS: oxymetazoline 0.05% Nasal Spray 15 mL 2 SPRAY NOSTRIL-B (13:17)
[2022-09-12] MEDS: neomycin-poly-bacitracin oint 28 gm 1 APPLIC TOPICAL (13:18)
--- NOTE | 2022-09-12 13:29 | P.OP_ITS ---
Operative Report Date of procedure: September 12, 2022 Pre-op diagnosis: Preop Diagnosis Nasal obstruction with deviated nasal septum and turbinate hypertrophy Post-op diagnosis: Same Post-op findings: Deviated nasal septum superiorly to the right side. Left side inferior turbinate 3+ right side 2+ Procedure done: Septoplasty with bilateral inferior turbinate outfracturing with intramural cauterization Implants: 2 Telfa packs and 2 septal splints Specimens removed/disposition: Segments of quadrangular cartilage and bone of septum not sent for pathology Pathology: No specimen for pathology Surgeon: Calderon Root MD Anesthesia: General and Local Estimated blood loss: 20 mL Complications: No complications encountered Findings: Patient found to have a superior deflection of the septum to the right side and then a very large spur with quadrangular cartilage overriding a displaced maxillary crest to the left side. Left inferior turbinate larger than right due to compensatory hypertrophy. Brief History: 32-year-old male patient with a severe nasal dyspnea problem found to be due to a severely deviated nasal septum which was due to old trauma. Patient has a convex band of the septum superiorly to the right side and an inferior spur off the crest to the left side inferiorly. Inferior turbinate larger left side than right due to compensatory hypertrophy. Resultant overall problem is narrowed airflow and nasal obstruction. Patient is being brought to the operating room at this time to undergo a septoplasty and turbinate reduction as indicated. The procedure its risks and complications of been explained in detail in the office setting. These risks included bleeding and infection and numbness and scarring and swelling and bruising and septal hematoma or abscess or perforation and change in sense of smell or nasal dryness and recurrent problems and need for additional treatment as well as more serious risks associated with anesthesia such as heart attack or stroke or not surviving the surgery. With these things understood informed consent was granted and witnessed. Procedure: Description of procedure: The patient was placed on the operating table in the supine position. Adequate general endotracheal tube anesthesia was obtained. He was repositioned into a semirecumbent position. He was given Ancef IV for prophylaxis. His nose was packed with 6 cottonoids soaked in 12-hour Afrin 3 on each side. Nasal hairs were trimmed with scissors. Then the Afrin packs were removed and the septum and inferior turbinates were infiltrated with local utilizing a total of 10.2 mL of 2% Xylocaine with 1-100,000 epinephrine. The Afrin packs were reapplied to the nose and the patient was prepped and draped in usual fashion. A timeout was accomplished identifying the patient date of plan procedure allergies fire risk and medications given. With all in agreement the procedure continued. The Afrin packs were once again removed from the nose. The inferior turbinates were outfractured with a [place] elevator. A left hemitransfixion incision was created with a 15 blade carrying it down to the level of the septal cartilage after which a mucoperichondrial periosteal flap was raised on the left side in all directions. Then dissection was carried around the distal aspect anteriorly to allow for the bend of the quadrangular cartilage to the right side to be released. Then a half round knife was used to excise a large overriding quadrangular cartilage off the crest to the left side. This measured anteriorly to be about 3 mm off and approximately 6 mm off more posteriorly at the junction of the bony septum. Then the quadrangular cartilage was disarticulated from the perpendicular plate of the ethmoid and vomer and a posterior tunnel created on the right side. Then the bony septum was fractured back into a midline position superiorly. At this point with the quadrangular cartilage from the bony septum the posterior aspect was trimmed with Tea forceps taking small bites over the entire superior to inferior remnant and this was done until the quadrangular cartilage snapped into a central position midline and locked in place by the bony septum. With that accomplished a drain hole was created on the left side to prevent hematoma formation. The maxillary crest was fractured back into a straight midline position from left to right with a [place] elevator. Then the inferior turbinates were once again checked. The bulbous anterior portions were cauterized intramurally with with a needle tip Bovie. It was done more on the left side than the right because of the increased size on the left. Once this was accomplished the [place] elevator was able to be passed through both nasal chambers to the nasopharynx without obstruction. The left hemitransfixion incision was closed loosely with interrupted 4-0 chromic suture. 2 septal splints were coated with Neosporin and 1 was applied each side of the septum. These were then sutured in a through and through fashion with 3-0 Prolene. 2 Telfa packs were then cut to size coated with Neosporin and 1 was applied each side of the nose extending from anterior to posterior. Then a drip pad was applied over the end of the patient's nose after the nose was cleansed. The mouth and oropharynx were suctioned clean. An oral obturator was placed and the patient had his drapes removed with eye tape removed and he was returned to anesthesia for wake-up and extubation. He tolerated the procedure well had an estimated blood loss of 20 mL and arrived in recovery in stable condition.
[2022-09-12] MEDS: labetalol 5 mg/mL SDV 20mL 10 MG IVP (13:59)
[2022-09-12] MEDS: TRAMadol 50 mg Tablet PO (14:30)
--- NOTE | 2022-09-12 14:40 | ANE.PACU2 ---
Inpatient post-anesthesia follow up: Airway intact: Yes Vital signs: Temperature 97.7 F Pulse Rate 68 Respiratory Rate 16 Blood Pressure 161/90 Pulse Oximetry 96 Oxygen Delivery Me thod Room Air Oxygen Flow Rate 6 Fraction of Inspir ed Oxygen Hydration adequate: Yes Nausea and vomiting: Yes Pain level: 1 Mental status: Baseline
== END 2022-09-12 14:53 | disposition home or self-care (01) ==
PROVIDERS: PCP Family Medicine; Visit Provider Otolaryngology
PROC: (CPT 30520; principal; 2022-09-12 12:00)
PROC: (CPT 30520; 2022-09-12 12:00)
DX: J34.2 Deviated nasal septum (principal); J34.3 Hypertrophy of nasal turbinates; J45.909 Unspecified asthma, uncomplicated; I10 Essential (primary) hypertension; E03.9 Hypothyroidism, unspecified; E66.01 Morbid (severe) obesity due to excess calories; Z68.34 Body mass index [BMI] 34.0-34.9, adult; Z79.899 Other long term (current) drug therapy
CPT/HCPCS: 30520; 94640; J0690; J1100; J2250; J2405; J2704; J2710; J3010; J3490; J7030; J7644

== ENCOUNTER → 2022-09-20 08:08 | Outpatient (BNVA) | payer MEDICAID, SELFPAY | PROVIDERS: PCP Family Medicine; Visit Provider Otolaryngology | DX: Z48.810 Encounter for surgical aftercare following surgery on the sense organs (principal) | CPT/HCPCS: 99024 ==

== ENCOUNTER 2023-01-15 21:33 | Emergency (ER) | payer MEDICAID, SELFPAY ==
[2023-01-15 21:34] VITALS: BP 168/100; PULSE 75; RESP 16; TEMP 36.7; O2SAT 100; BMI 34.9
--- NOTE | 2023-01-15 22:22 | W.ED.GENADLT ---
HPI - General Adult General: Chief complaint: General Medical Stated complaint: throat pain, chest pain Time Seen by Provider: 01/15/23 21:34 History of Present Illness: Patient is a 32-year-old male with a past medical history significant for hypothyroidism, hypertension, asthma, GERD, and irritable bowel syndrome who presents to the emergency department for evaluation of chest pain/throat pain. Patient reports that the symptoms started approximately 1 week ago and has continue to progress since onset. Patient currently rates his pain as a 2 out of 10 in severity that he describes as a pressure-like sensation. Patient states that the pain starts in his neck and then radiates into his upper bilateral chest. Patient reports that he has an appointment scheduled with his primary care provider on , however, the patient was concerned about his heart so he decided present to the emergency department for further management/evaluation. Patient states that he has also had a mild intermittent headache that will come and go randomly throughout the week. Patient states that he has a known history of migraines, however, he denies any current headache at this time. Admits to mild lightheadedness and dizziness. The patient denies shortness of breath, palpitations, cough, congestion, otalgia, otorrhea, sore throat, difficulty swallowing, excessive drooling, abdominal pain, constipation, diarrhea, dysuria, hematuria, or any other associated symptoms. Patient denies history of DVT/PE, long distance travels/recent surgeries, or exogenous estrogen use. Patient denies smoking, drinking, or any other recreational drug use. No other complaints at this time. Associated symptoms: Reports chest pain; Deny dyspnea, headache(s), nausea, rash, palpitations, syncope or vomiting Review of Systems General: Reports: 10 or more systems reviewed and unremarkable except in HPI and below Const: Denies: fever(s) or chills Eyes: Denies: change in vision or blurry vision ENMT: Denies: ear or mastoid pain, ear discharge, nasal discharge or nasal congestion Card: Reports: chest pain and lightheadedness; Denies: palpitations, irregular heart rhythm or syncope Resp: Denies: dyspnea, productive cough, non-productive cough or wheezing GI: Denies: abdominal pain, nausea, vomiting, diarrhea or constipation : Denies: flank pain, dysuria or hematuria Musc: Reports: neck pain; Denies: back pain Skin/Breast: Denies: rash Neuro: Reports: dizziness; Denies: headache(s), numbness in extremities, weakness in extremities or vertigo PFSH ED PFSH: Medical History Anxiety Asthma BMI 34.0-34.9,adult Cervical radiculopathy Depression History of eustachian tube dysfunction Hypothyroidism IBS (irritable bowel syndrome) Spina bifida aperta of cervical spine Surgical History History of adenectomy History of cholecystectomy History of knee surgery Family History Father Cancer wagners granulomus Other Diabetes Hyperlipidemia Hypertension Lung disease Stroke Denies family history of CAD (coronary artery disease) Clotting disorder Dementia Psychiatric illness Chronic kidney disease (CKD) Anesthesia complication Bleeding disorder Social History Smoking and tobacco/nicotine status: never used tobacco/nicotine Alcohol intake: never Substance/Drug Use: never Lives independently: Yes Marital status: Number of children: 4 Current occupational status: disabled Current gender identity: Male Physical Exam Const: COMMON NORMALS: no acute distress, patient oriented x3 and alert HENMT: COMMON NORMALS: normocephalic, atraumatic, TM's normal bilaterally, moist oral mucous membranes and oropharynx normal HEAD & SCALP: normocephalic and atraumatic TYMPANIC MEMBRANE: TM's normal bilaterally OTHER: Bilateral tympanic membranes pearly islas without evidence of effusion or hemotympanums. Posterior oropharynx is clear without swelling, lesions, erythema, or exudates. No evidence of retropharyngeal abscess, peritonsillar abscess, or Lanre angina. Neck/C-Spine: COMMON NORMALS: full ROM, no lymphadenopathy, supple, no meningeal signs and no JVD OTHER: Neck is supple and nontender. No tenderness appreciated to either the anterior or posterior neck. No swelling or masses noted. Chest: COMMONS NORMALS: normal inspection of the chest and normal palpation of entire chest wall Resp: COMMON NORMALS: normal respiratory effort, No retractions, No use of accessory muscles and clear to auscultation bilaterally AUSCULTATION: clear to auscultation bilaterally Cardio: COMMON NORMALS: no JVD, regular rate, regular rhythm, No gallops present (Cardio), No clicks present (Cardio), No murmurs present (Cardio) and No rub (Cardio) RATE: regular rate RHYTHM: regular rhythm GI: COMMON NORMALS: Normal to inspection, nondistended, normoactive bowel sounds present, Soft to palpation and non-tender PALPATION: Yes Soft to palpation Extremity: OTHER: Moving bilateral upper and lower extremities without weakness or deficit. Neuro: COMMON NORMALS: patient oriented x3 SENSORIUM/ORIENTATION: Yes alert MENINGEAL SIGNS: Yes no meningeal signs OTHER: Sensation intact to the bilateral upper and lower extremities. Patient is alert and oriented x 4. No focal neurological deficits noted on examination. Cranial nerves II to XII grossly intact. Skin: COMMON NORMALS: no rashes or lesions noted GENERAL SKIN EXAM: no rashes or lesions noted Course Vital Signs: Vital signs: Vital Signs Temperature 98.1 F 01/15/23 21:34 Pulse Rate 75 01/15/23 21:34 Respiratory Rate 16 01/15/23 21:34 Blood Pressure 168/100 01/15/23 21:34 Pulse Oximetry 100 01/15/23 21:34 [facility] - General Adult Medical Decision Making Patient is a 32-year-old male with a past medical history significant for hypothyroidism, hypertension, asthma, GERD, and irritable bowel syndrome who presents to the emergency department for evaluation of chest pain/throat pain. On physical examination patient is nontoxic and in no acute distress. Vital signs remained stable throughout the ED course. Patient is afebrile. Patient is neurovascular intact. Patient denies throat swelling or difficulty swallowing. Patient states that the muscles of his neck hurts and radiate into his chest. Patient states that he is concerned about his heart which is why he presented to the emergency department. Patient reports that his pain started approximately 1 week ago. CBC showed no evidence of leukocytosis or anemia. CMP, and baseline troponin unremarkable. EKG normal sinus rhythm. Chest x-ray showed no acute cardiopulmonary pathology. Patient denied strep swab. Based off history and physical examination I do not believe the patient symptoms are emergent and warrant further emergent evaluation at this time. No neck mass is noted on examination. No evidence of retropharyngeal abscess, peritonsillar abscess, or Lanre's angina. I did offer a CT soft tissue neck for further evaluation, however, the patient denied further management at this time and is requesting to follow-up with his primary care provider on . Patient PERC out for pulmonary embolism. I do not think pulmonary embolism or acute coronary syndrome is likely at this time. Increase oral hydration. See handout over generalized instructions. Call your primary care tomorrow with an update of your symptoms and schedule appointment for further management/evaluation. Return to the emergency department for any rapid or worsening symptoms to include but not limited to throat swelling, difficulty swallowing, increased chest pain, shortness of breath, palpitations, fever, lightheadedness, dizziness, or as needed. I discussed the patient's history, exam, and all findings with Dr. Delgado in the emergency department who agreed my assessment and plan. He did not feel the patient required admission or further evaluation at this time. Patient stated understanding of all discharge instructions and was agreeable to plan of care. Differential diagnosis includes but is not limited to acute coronary syndrome, arrhythmia, pulmonary embolism, retropharyngeal abscess, peritonsillar abscess, Lanre's angina Lab Data 01/15/23 22:51 01/15/23 22:51 Radiology Impressions Chest X-Ray 01/15/23 22:32 IMPRESSION: No acute findings. Laboratory Results WBC 9.44 10^3/uL (3.29-11.43) 01/15/23 22:51 RBC 5.03 10^6/uL (3.85-5.65) 01/15/23 22:51 Hgb 14.40 g/dL (11.27-16.99) 01/15/23 22:51 Hct 43.5 % (37-53) 01/15/23 22:51 MCV 86.5 fl (82-101) 01/15/23 22:51 MCH 28.6 pg (27-33) 01/15/23 22:51 MCHC 33.1 g/dL (30-55) 01/15/23 22:51 RDW 12.5 % (12.1-15.1) 01/15/23 22:51 Plt Count 229 10^3/cmm (157-399) 01/15/23 22:51 MPV 11.3 fL (7.4-10.4) H 01/15/23 22:51 Neut % (Auto) 58.6 % 01/15/23 22:51 Lymph % (Auto) 27.0 % 01/15/23 22:51 Irwin % (Auto) 9.1 % 01/15/23 22:51 Eos % (Auto) 4.3 % 01/15/23 22:51 Baso % (Auto) 0.6 % 01/15/23 22:51 Neut # (Auto) 5.52 10^3/uL (1.8-7.7) 01/15/23 22:51 Lymph # (Auto) 2.6 10^3/uL (0.8-4.8) 01/15/23 22:51 [place]win # (Auto) 0.9 10^3/uL (0.2-0.9) 01/15/23 22:51 Eos # (Auto) 0.4 10^3/uL (0.0-0.8) 01/15/23 22:51 Baso # (Auto) 0.1 10^3/uL (0.0-0.1) 01/15/23 22:51 Nucleated RBC % (auto) 0 % 01/15/23 22:51 Nucleated RBCs # 0.0 /100WBC 01/15/23 22:51 Sodium 138 mmol/L (136-145) 01/15/23 22:51 Potassium 4.6 mmol/L (3.5-5.1) 01/15/23 22:51 Chloride 101 mmol/L (98-107) 01/15/23 22:51 Carbon Dioxide 25 mmol/L (22-29) 01/15/23 22:51 Anion Gap 16.6 (5-19) 01/15/23 22:51 BUN 14 mg/dL (6-20) 01/15/23 22:51 Creatinine 1.2 mg/dL (0.7-1.2) 01/15/23 22:51 GFR Calculation 69.3 mL/min (90-130) L 01/15/23 22:51 Glucose 98 mg/dL (65-115) 01/15/23 22:51 Calculated Osmolality 286 mOsm/kg (285-295) 01/15/23 22:51 Calcium 9.5 mg/dL (8.5-10.5) 01/15/23 22:51 Total Bilirubin 0.2 mg/dL (0.15-1.2) 01/15/23 22:51 AST 16 U/L (0-40) 01/15/23 22:51 ALT 22 U/L (0-41) 01/15/23 22:51 Alkaline Phosphatase 99 U/L (40-130) 01/15/23 22:51 Troponin T Baseline < 6 ng/L (0-15) 01/15/23 22:51 Total Protein 7.0 g/dL (6.6-8.7) 01/15/23 22:51 Albumin 4.2 g/dL (3.5-5.2) 01/15/23 22:51 Globulin 2.8 g/dL (1.3-4.6) 01/15/23 22:51 All radiology interpretation(s) finalized by discharge Discharge Plan Discharge Patient Disposition: Home Clinical Impression: Chest pain Condition: Stable Prescriptions: No Action fexofenadine [Leesa Allergy] 180 mg tablet 180 mg PO DAILY PRN (Reason: Allergy Symptoms) metoprolol succinate 25 mg tablet extended release 24 hr 25 mg PO DAILY Qty: 90 1RF Atrovent HFA 17 mcg/actuation HFA aerosol inhaler 2 puff inhalation BID Qty: 12.9 4RF liothyronine [Cytomel] 5 mcg tablet 10 mcg PO DAILY Qty: 90 1RF venlafaxine 75 mg capsule,extended release 24hr 75 mg PO DAILY 30 Days Qty: 90 0RF pantoprazole [Protonix] 40 mg Tablet,Delayed Release (Dr/Ec) 40 mg PO DAILY neomycin-polymyxin B-dexameth [Maxitrol] 3.5mg/mL-10,000 unit/mL-0.1 % drops,suspension 1 drp ophthalmic (eye) Q8H PRN (Reason: itchy eyes) triamcinolone acetonide [Nasacort] 55 mcg aerosol,spray 1 spray intranasal DAILY PRN (Reason: dryness) Rx Instructions: administer into each nostril Discharge Orders: Discharge ED (Routine); Ordered 01/15/23 Ordered By: Damian Alan Referrals: Jacky Fleming MD [Primary Care Provider] - Patient Instructions: Chest Pain (ED) Activity Restrictions/Additional Instructions: As discussed in room no acute or concerning pathology was noted on your imaging or laboratory work. Increase oral hydration. See handout over generalized instructions. Call your primary care tomorrow with an update of your symptoms and schedule appointment for further management/evaluation. Return to the emergency department for any rapid or worsening symptoms to include but not limited to throat swelling, difficulty swallowing, increased chest pain, shortness of breath, palpitations, fever, lightheadedness, dizziness, or as needed. Coding Level of Care Code ED Yeast Stacker for Jaylen Rider
--- NOTE | 2023-01-15 22:32 | XRR_ITS ---
PROCEDURE INFORMATION: Exam: XR Chest Exam date and time: 01/15/2023 10:35 PM Age: 32 years old Clinical indication: Pain; Chest pressure; Patient HX: PT has piercings that do not come out; Additional info: Chest pain TECHNIQUE: Imaging protocol: Radiologic exam of the chest. Views: 2 views. COMPARISON: CR (CHEST, ) 08/17/2020 7:16 PM FINDINGS: Lungs: No consolidation. Pleural spaces: No pleural effusion. No pneumothorax. Heart/Mediastinum: Unremarkable cardiomediastinal silhouette. Bones/joints: No acute abnormality. XR/XR chest 2V* [id number] IMPRESSION: No acute findings.
[2023-01-15 22:56] LABS: Basophils # 0.1 10^3/uL (0.0-0.1); Basophils % 0.6 %; Eosinophils # 0.4 10^3/uL (0.0-0.8); Eosinophils % 4.3 %; Hematocrit 43.5 % (37-53); Lymphocytes # 2.6 10^3/uL (0.8-4.8); Mean Corpuscular HGB Conc 33.1 g/dL (30-55); Mean Corpuscular Hemoglobin 28.6 pg (27-33); Mean Corpuscular Volume 86.5 fl (82-101); Mean Platelet Volume 11.3 fL (7.4-10.4); Monocytes # 0.9 10^3/uL (0.2-0.9); Monocytes % 9.1 %; Neutrophils # 5.52 10^3/uL (1.8-7.7); Neutrophils % 58.6 %; Nucleated Red Blood Cells % 0 %; Platelet Count 229 10^3/cmm (157-399); Red Blood Count 5.03 10^6/uL (3.85-5.65); Red Cell Distribution Width 12.5 % (12.1-15.1); White Blood Count 9.44 10^3/uL (3.29-11.43)
[2023-01-15 23:32] LABS: Alanine Aminotransferase 22 U/L (0-41); Albumin Level 4.2 g/dL (3.5-5.2); Alkaline Phosphatase 99 U/L (40-130); Blood Urea Nitrogen 14 mg/dL (6-20); Calcium 9.5 mg/dL (8.5-10.5); Carbon Dioxide 25 mmol/L (22-29); Chloride 101 mmol/L (98-107); Globulin 2.8 g/dL (1.3-4.6); Glomerular Filtration Rate 69.3 mL/min (90-130); Glucose 98 mg/dL (65-115); Osmolality Calculated 286 mOsm/kg (285-295); Sodium 138 mmol/L (136-145); Total Bilirubin 0.2 mg/dL (0.15-1.2)
[2023-01-15 23:35] LABS: Troponin(5th) Baseline < 6 ng/L (0-15)
[2023-01-15 23:38] LABS: Anion Gap 16.6 (5-19); Aspartate Amino Transferase 16 U/L (0-40); Potassium 4.6 mmol/L (3.5-5.1)
== END 2023-01-16 00:18 | disposition home or self-care (01) ==
PROVIDERS: Emergency Provider Physician Assistant; PCP Family Medicine
DX: R07.9 Chest pain, unspecified (principal)
CPT/HCPCS: 36415; 71046; 80053; 84484; 85025; 99284

== ENCOUNTER 2023-03-30 11:06 | Emergency (ER) | payer MEDICAID, SELFPAY ==
--- NOTE | 2023-03-30 11:19 | ED_ITS ---
HPI - Abdominal Pain 2 General: Chief Complaint: Abdominal Pain Stated Complaint: lower, right side abd pain Time Seen by Provider: 03/30/23 11:08 Source: patient Mode of arrival: ambulatory Limitations: no limitations History of Present Illness: Patient is a 33-year-old male who presents to ED today with a complaint of pain to the right side of his abdomen. He states 2 days ago he was sitting in a recliner when he dave his legs up to bend his knees and immediately felt something in the right side of his abdomen. He is concerned this could be an IBS flare or acute appendicitis. Patient was completely asymptomatic before drawing his legs up. He has not noticed any mass or bulge to the abdomen. He is stooling normally and passing flatulence. No issues with urination. He has not been running fevers. States he does feel slightly nauseous. MD elicited complaint: abdominal pain Pertinent past history: none Onset (ago): day(s) Pain Consistency: constant Location: RLQ Severity: mild Quality: dull Radiation: none Migration to: no migration Exacerbating factors: movement Relieving factors: nothing Associated Symptoms: Reports chills and nausea; Denies change in bowel habits, GI cramping, diarrhea, dysuria, fever(s), hematochezia, melena and vomiting Review of Systems 2 Const: Reports: chills; Denies: fever(s), body aches, change in appetite, change in weight, fatigue or malaise Card: Denies: chest pain Resp: Denies: dyspnea GI: Reports: abdominal pain and nausea; Denies: vomiting, diarrhea, GI cramping, change in bowel habits, rectal pain, hematochezia or melena : Denies: flank pain, difficulty urinating, dysuria, urinary frequency, urinary urgency or urinary hesitancy Musc: Denies: neck pain, back pain, extremity pain or joint pain Skin/Breast: Denies: rash Neuro: Denies: headache(s), numbness in extremities, weakness in extremities or sensory changes PFSH ED 2 PFSH: Medical History Asthma Hypothyroidism IBS (irritable bowel syndrome) BMI 34.0-34.9,adult Depression Anxiety Spina bifida aperta of cervical spine History of eustachian tube dysfunction Cervical radiculopathy Surgical History History of cholecystectomy History of knee surgery History of adenectomy Family History Father Cancer wagners granulomus Other Diabetes Hyperlipidemia Hypertension Lung disease Stroke Denies family history of CAD (coronary artery disease) Clotting disorder Dementia Psychiatric illness Chronic kidney disease (CKD) Anesthesia complication Bleeding disorder Social History Smoking and tobacco/nicotine status: never used tobacco/nicotine Alcohol intake: never Substance/Drug Use: never Lives independently: Yes Marital status: Number of children: 4 Current occupational status: disabled Current gender identity: Male Physical Exam 2 Const: COMMON NORMALS: no acute distress, patient oriented x3, no limitations, alert and well nourished GENERAL APPEARANCE: cooperative O RIENTATION/CONSCIOUSNESS: Yes awake, Yes oriented to person, Yes oriented to place and Yes oriented to time Eye: COMMON NORMALS: no scleral icterus Resp: COMMON NORMALS: normal respiratory effort and clear to auscultation bilaterally AUSCULTATION: clear to auscultation bilaterally Cardio: COMMON NORMALS: regular rate and regular rhythm RATE: regular rate RHYTHM: regular rhythm GI: COMMON NORMALS: Normal to inspection, nondistended, normoactive bowel sounds present, Soft to palpation, No hepatosplenomegaly present and no masses INSPECTION: Yes normal to inspection AUSCULTATION: Yes normoactive bowel sounds PALPATION: Yes Soft to palpation, Yes Tenderness to palpation present (GI) (no guarding/no hernia appreciated) Details: RLQ and other (negative specialized testing for appendicitis), No Guarding due to palpation present (GI), No Rigid due to palpation and Yes No hepatosplenomegaly present : COMMON NORMALS: Yes no CVA tenderness BLADDER/KIDNEY EXAM: Yes no CVA tenderness Back/Pelvis: COMMON NORMALS: no CVA tenderness and thoracic and lumbar spine normal to inspection Extremity: GENERAL: Yes normal exam except as noted Neuro: COMMON NORMALS: patient oriented x3, moves all extremities, no focal motor deficits, no sensory deficits noted and gait normal S ENSORIUM/ORIENTATION: Yes alert, Yes oriented to person, Yes oriented to place and Yes oriented to time Skin: COMMON NORMALS: no rashes or lesions noted GENERAL SKIN EXAM: no rashes or lesions noted Course 2 Vital Signs: Vital signs: Vital Signs Temperature 98.2 F 03/30/23 11:25 Pulse Rate 81 03/30/23 11:25 Respiratory Rate 18 03/30/23 11:25 Blood Pressure 144/72 03/30/23 11:44 Pulse Oximetry 100 03/30/23 11:44 Oxygen Delivery Me thod Room Air 03/30/23 11:44 MDM - Abdominal Pain Medical Decision Making History most likely is consistent with a musculoskeletal strain. He arrives in no acute distress with stable vital signs. His labs are unremarkable. UA is clear. He is stable for discharge with return precautions. Medical Records I reviewed the patient's medical records. Lab Data I reviewed the patient's lab results. 03/30/23 11:35 03/30/23 11:35 Labs/Radiology: Laboratory Results WBC 6.80 10^3/uL (3.29-11.43) 03/30/23 11:35 RBC 5.22 10^6/uL (3.85-5.65) 03/30/23 11:35 Hgb 14.80 g/dL (11.27-16.99) 03/30/23 11:35 Hct 44.3 % (37-53) 03/30/23 11:35 MCV 84.9 fl (82-101) 03/30/23 11:35 MCH 28.4 pg (27-33) 03/30/23 11:35 MCHC 33.4 g/dL (30-55) 03/30/23 11:35 RDW 12.9 % (12.1-15.1) 03/30/23 11:35 Plt Count 228 10^3/cmm (157-399) 03/30/23 11:35 MPV 11.1 fL (7.4-10.4) H 03/30/23 11:35 Neut % (Auto) 61.2 % 03/30/23 11:35 Lymph % (Auto) 22.5 % 03/30/23 11:35 Door % (Auto) 8.2 % 03/30/23 11:35 Eos % (Auto) 6.9 % 03/30/23 11:35 Baso % (Auto) 0.9 % 03/30/23 11:35 Neut # (Auto) 4.16 10^3/uL (1.8-7.7) 03/30/23 11:35 Lymph # (Auto) 1.5 10^3/uL (0.8-4.8) 03/30/23 11:35 Door # (Auto) 0.6 10^3/uL (0.2-0.9) 03/30/23 11:35 Eos # (Auto) 0.5 10^3/uL (0.0-0.8) 03/30/23 11:35 Baso # (Auto) 0.1 10^3/uL (0.0-0.1) 03/30/23 11:35 Nucleated RBC % (auto) 0 % 03/30/23 11:35 Nucleated RBCs # 0.0 /100WBC 03/30/23 11:35 Sodium 137 mmol/L (136-145) 03/30/23 11:35 Potassium 4.2 mmol/L (3.5-5.1) 03/30/23 11:35 Chloride 100 mmol/L (98-107) 03/30/23 11:35 Carbon Dioxide 24 mmol/L (22-29) 03/30/23 11:35 Anion Gap 17.2 (5-19) 03/30/23 11:35 BUN 7 mg/dL (6-20) 03/30/23 11:35 Creatinine 0.9 mg/dL (0.7-1.2) 03/30/23 11:35 GFR Calculation 96.0 mL/min (90-130) 03/30/23 11:35 Glucose 100 mg/dL (65-115) 03/30/23 11:35 Calculated Osmolality 282 mOsm/kg (285-295) L 03/30/23 11:35 Calcium 9.3 mg/dL (8.5-10.5) 03/30/23 11:35 Total Bilirubin 0.6 mg/dL (0.15-1.2) 03/30/23 11:35 AST 21 U/L (0-40) 03/30/23 11:35 ALT 29 U/L (0-41) 03/30/23 11:35 Alkaline Phosphatase 91 U/L (40-130) 03/30/23 11:35 C-Reactive Protein 9.1 mg/L (0.0-4.9) H 03/30/23 11:35 Total Protein 7.6 g/dL (6.6-8.7) 03/30/23 11:35 Albumin 4.3 g/dL (3.5-5.2) 03/30/23 11:35 Globulin 3.3 g/dL (1.3-4.6) 03/30/23 11:35 Urine Color Yellow (Yellow) 03/30/23 11:43 Urine Appearance Clear (CLEAR) 03/30/23 11:43 Urine pH 5 (5-7) 03/30/23 11:43 Ur Specific [place] 1.020 (1.005-1.030) 03/30/23 11:43 Urine Protein Neg (Negative) 03/30/23 11:43 Urine Glucose (UA) Norm (Normal) 03/30/23 11:43 Urine Ketones Negative (Negative) 03/30/23 11:43 Urine Blood Neg (Negative) 03/30/23 11:43 Urine Nitrate Negative (Negative) 03/30/23 11:43 Urine Bilirubin Neg (Negative) 03/30/23 11:43 Urine Urobilinogen Neg mg/dL (Negative) 03/30/23 11:43 Ur Leukocyte Esterase Negative (Negative) 03/30/23 11:43 No radiology studies performed this visit Discharge Plan Discharge Patient Disposition: Home Clinical Impression: Musculoskeletal strain Condition: Stable Prescriptions: No Action fexofenadine [Leesa Allergy] 180 mg tablet 180 mg PO DAILY PRN (Reason: Allergy Symptoms) diclofenac sodium [Voltaren Arthritis Pain] 1 % gel 4 g topical QID Qty: 100 0RF Rx Instructions: apply to single knee, ankle, foot; for foot includes sole/toes/top of foot fluticasone propionate [Flonase Allergy Relief] 50 mcg/actuation spray,suspension 1 spray intranasal DAILY Qty: 16 0RF Rx Instructions: administer into each nostril levofloxacin 500 mg tablet 500 mg PO DAILY 7 Days Qty: 7 0RF metoprolol succinate 25 mg tablet extended release 24 hr 25 mg PO DAILY Qty: 90 1RF Atrovent HFA 17 mcg/actuation HFA aerosol inhaler 2 puff inhalation BID Qty: 12.9 4RF liothyronine [Cytomel] 5 mcg tablet 10 mcg PO DAILY Qty: 90 1RF venlafaxine 75 mg capsule,extended release 24hr 75 mg PO DAILY Qty: 90 1RF pantoprazole [Protonix] 40 mg Tablet,Delayed Release (Dr/Ec) 40 mg PO DAILY neomycin-polymyxin B-dexameth [Maxitrol] 3.5mg/mL-10,000 unit/mL-0.1 % drops,suspension 1 drp ophthalmic (eye) Q8H PRN (Reason: itchy eyes) triamcinolone acetonide [Nasacort] 55 mcg aerosol,spray 1 spray intranasal DAILY PRN (Reason: dryness) Rx Instructions: administer into each nostril Discharge Orders: Discharge ED (Routine); Ordered 03/30/23 Ordered By: Dannielle Wilson Referrals: Jacky Fleming MD [Primary Care Provider] - Activity Restrictions/Additional Instructions: As we discussed at this time I suspect your symptoms are most likely secondary to a muscle strain. Recommend [id number] anti-inflammatories such as Motrin or naproxen. You may also try ice or heat. You need to return to the emergency department for severe abdominal pain, repetitive episodes of vomiting or diarrhea, fevers greater than 100.4, generally feeling worse or unwell, or any other concerns you may have. Coding Level of Care Code ED Concrete Polisher for Jaylen Rider
[2023-03-30 11:25] VITALS: BP 159/89; PULSE 81; RESP 18; TEMP 36.8; O2SAT 98
[2023-03-30 11:42] LABS: Basophils # 0.1 10^3/uL (0.0-0.1); Basophils % 0.9 %; Eosinophils # 0.5 10^3/uL (0.0-0.8); Eosinophils % 6.9 %; Hematocrit 44.3 % (37-53); Lymphocytes # 1.5 10^3/uL (0.8-4.8); Lymphocytes % 22.5 %; Mean Corpuscular HGB Conc 33.4 g/dL (30-55); Mean Corpuscular Hemoglobin 28.4 pg (27-33); Mean Corpuscular Volume 84.9 fl (82-101); Mean Platelet Volume 11.1 fL (7.4-10.4); Monocytes # 0.6 10^3/uL (0.2-0.9); Monocytes % 8.2 %; Neutrophils # 4.16 10^3/uL (1.8-7.7); Neutrophils % 61.2 %; Nucleated Red Blood Cells % 0 %; Platelet Count 228 10^3/cmm (157-399); Red Blood Count 5.22 10^6/uL (3.85-5.65); Red Cell Distribution Width 12.9 % (12.1-15.1)
[2023-03-30 11:44] VITALS: BP 144/72; O2SAT 100
[2023-03-30 11:52] LABS: Add Urine Microscopic? NO; Charge for UA Resulting for Rev
[2023-03-30 12:01] LABS: Alanine Aminotransferase 29 U/L (0-41); Albumin Level 4.3 g/dL (3.5-5.2); Alkaline Phosphatase 91 U/L (40-130); Anion Gap 17.2 (5-19); Aspartate Amino Transferase 21 U/L (0-40); Blood Urea Nitrogen 7 mg/dL (6-20); C Reactive Protein 9.1 mg/L (0.0-4.9); Calcium 9.3 mg/dL (8.5-10.5); Carbon Dioxide 24 mmol/L (22-29); Chloride 100 mmol/L (98-107); Globulin 3.3 g/dL (1.3-4.6); Glucose 100 mg/dL (65-115); Osmolality Calculated 282 mOsm/kg (285-295); Potassium 4.2 mmol/L (3.5-5.1); Sodium 137 mmol/L (136-145); Total Bilirubin 0.6 mg/dL (0.15-1.2); Total Protein 7.6 g/dL (6.6-8.7)
[2023-03-30 12:10] LABS: Bilirubin Urine Neg (Negative); Blood Urine Neg (Negative); Glucose Urine UA Norm (Normal); Ketones Urine Negative (Negative); Leukocyte Esterase Urine Negative (Negative); Nitrate Urine Negative (Negative); Protein Urine Neg (Negative); Urine Appearance Clear (CLEAR); Urine Color Yellow (Yellow); Urobilinogen Urine Neg (Negative); pH Urine 5 (5-7)
== END 2023-03-30 12:43 | disposition home or self-care (01) ==
PROVIDERS: Emergency Provider Physician Assistant; PCP Family Medicine
DX: S39.011A Strain of muscle, fascia and tendon of abdomen, initial encounter (principal); X50.9XXA Other and unspecified overexertion or strenuous movements or postures, initial encounter
CPT/HCPCS: 80053; 81003; 85025; 86140; 99283

== ENCOUNTER 2023-06-23 10:12 | Emergency (ER) | payer MEDICAID, SELFPAY ==
[2023-06-23 10:28] VITALS: BP 143/86; PULSE 74; RESP 17; TEMP 36.8; O2SAT 97; BMI 33.0
[2023-06-23 11:09] LABS: ABG PCO2 39.6 mmHg (35-45); Alveolar-Arterial Oxygen Gradi 0.8 mmHg (5-10); Arterial Blood Gas Hematocrit 47.7 % (42-52); Base Excess ABG -0.4 mmol/L (-2.0-2.0); Blood Gas Allen Test Pos; Blood Gas Operator Identificat MONRO; Blood Gas Sample Site Radial, left; Blood Gas Sample Type Arterial; Carboxyhemoglobin 0.8 %THgb (0.4-20.1); HCO3 ABG 24.3 mmol/L (22-26); HGB O2 Sat 97.1 % (95-100); Ionized Calcium Level - ABG 1.3 mmol/L (1.1-1.4); Oxygen Device ROOM AIR; Oxygen Saturation ABG 97.9; PO2 FiO2 Ratio Arterial Blood 0; Potassium Level - ABG 4.7 mmol/L (3.5-5.0); Total Hemoglobin 15.6 g/dL (14-18)
[2023-06-23 12:07] LABS: Basophils # 0.1 10^3/uL (0.0-0.1); Basophils % 0.8 %; Eosinophils # 0.4 10^3/uL (0.0-0.8); Eosinophils % 3.9 %; Hematocrit 47.2 % (37-53); Lymphocytes # 1.8 10^3/uL (0.8-4.8); Lymphocytes % 19.5 %; Mean Corpuscular HGB Conc 32.8 g/dL (30-55); Mean Corpuscular Hemoglobin 28.4 pg (27-33); Mean Corpuscular Volume 86.4 fl (82-101); Mean Platelet Volume 11.6 fL (7.4-10.4); Monocytes # 0.7 10^3/uL (0.2-0.9); Monocytes % 7.2 %; Neutrophils # 6.31 10^3/uL (1.8-7.7); Neutrophils % 68.4 %; Nucleated Red Blood Cells % 0 %; Platelet Count 251 10^3/cmm (157-399); Red Blood Count 5.46 10^6/uL (3.85-5.65); White Blood Count 9.22 10^3/uL (3.29-11.43)
[2023-06-23 12:24] LABS: Alanine Aminotransferase 24 U/L (0-41); Albumin Level 4.3 g/dL (3.5-5.2); Alkaline Phosphatase 90 U/L (40-130); Anion Gap 16.6 (5-19); Aspartate Amino Transferase 17 U/L (0-40); Blood Urea Nitrogen 12 mg/dL (6-20); Calcium 9.6 mg/dL (8.5-10.5); Carbon Dioxide 24 mmol/L (22-29); Chloride 99 mmol/L (98-107); Creatinine Clr Calc Pharmacy 124.7318; Globulin 3.6 g/dL (1.3-4.6); Glucose 106 mg/dL (65-115); Osmolality Calculated 278 mOsm/kg (285-295); Potassium 5.6 mmol/L (3.5-5.1); Sodium 134 mmol/L (136-145); Total Bilirubin 0.3 mg/dL (0.15-1.2); Total Protein 7.9 g/dL (6.6-8.7)
--- NOTE | 2023-06-23 13:27 | W.ED.DIZZY ---
HPI - Dizziness General: Chief Complaint: Dizziness Stated Complaint: numb extremities Time Seen by Provider: 06/23/23 13:17 Source: patient Mode of arrival: ambulatory History of Present Illness: HPI Narrative: 33-year-old male presents emergency room states he had numbness tingling all over his extremities. He has a history of spina bifida. He reports both the upper and lower extremities bilaterally he has numbness and tingling that stops at the elbows and the upper extremities and joints in the lower extremities. He is not ataxic his sensation is normal. He has some left groin pain as well he had this checked out by his primary care doctor in the past. Pain is less there now that has been previously the extremity symptoms have been present for months but are a little bit worse now. He does not have any urinary retention or fecal incontinence. No recent trauma. MD elicited complaint: dizziness Associated symptoms: Denies chest pain or chills Review of Systems Const: Denies: fever(s) or chills Card: Denies: chest pain Resp: Denies: dyspnea GI: Denies: abdominal pain : Denies: dysuria, urinary frequency or urinary urgency Musc: Denies: neck pain or back pain Skin/Breast: Denies: rash PFSH ED PFSH: Medical History Asthma Hypothyroidism IBS (irritable bowel syndrome) BMI 34.0-34.9,adult Depression Anxiety Spina bifida aperta of cervical spine History of eustachian tube dysfunction Cervical radiculopathy Surgical History History of cholecystectomy History of knee surgery History of adenectomy Family History Father Cancer wagners granulomus Other Diabetes Hyperlipidemia Hypertension Lung disease Stroke Denies family history of CAD (coronary artery disease) Clotting disorder Dementia Psychiatric illness Chronic kidney disease (CKD) Anesthesia complication Bleeding disorder Social History Smoking and tobacco/nicotine status: never used tobacco/nicotine Alcohol intake: never Substance/Drug Use: never Lives independently: Yes Marital status: Number of children: 4 Current occupational status: disabled Current gender identity: Male Physical Exam Const: GENERAL APPEARANCE: cooperative and comfortable ORIENTATION/CONSCIOUSNESS: Yes awake, Yes oriented to person, Yes oriented to place and Yes oriented to time HENMT: COMMON NORMALS: normocephalic, atraumatic and hearing grossly normal bilaterally HEAD & SCALP: normocephalic and atraumatic Resp: COMMON NORMALS: normal respiratory effort, No retractions, No use of accessory muscles and clear to auscultation bilaterally AUSCULTATION: clear to auscultation bilaterally Cardio: COMMON NORMALS: regular rate, regular rhythm and No murmurs present (Cardio) RATE: regular rate RHYTHM: regular rhythm GI: COMMON NORMALS: Soft to palpation and No hepatosplenomegaly present AUSCULTATION: Yes normoactive bowel sounds PALPATION: Yes Soft to palpation, No Tenderness to palpation present (GI), No Guarding due to palpation present (GI) and Yes No hepatosplenomegaly present Extremity: COMMON NORMALS: normal to inspection, capillary refill normal, no clubbing, cyanosis or edema, no calf tenderness and no pedal edema Neuro: SENSORIUM/ORIENTATION: Yes oriented to person, Yes oriented to place and Yes oriented to time OTHER: NIH is 0 Skin: COMMON NORMALS: no rashes or lesions noted GENERAL SKIN EXAM: no rashes or lesions noted Course Vital Signs: Vital signs: Vital Signs Temperature 98.2 F 06/23/23 16:29 Pulse Rate 73 06/23/23 16:29 Respiratory Rate 17 06/23/23 16:29 Blood Pressure 135/90 06/23/23 16:29 Pulse Oximetry 100 06/23/23 16:29 Oxygen Delivery Me thod Room Air 06/23/23 16:11 MDM - Dizziness Medical Decision Making Patient's symptoms have resolved. His NIH score was essentially 0 although he did complain of numbness radiating down all 4 extremities but stopping at the elbows and at the knees. No other symptoms has had this for extended period of time no head or neck trauma no significant head or neck pain at this time no ataxia and functionally appears normal. Will discharge patient home and have him follow-up with neurology. Return if has further problems. Potassium slightly elevated on the serum but on the blood gas was normal he was given fluids can follow-up with his primary care doctor to recheck. He has no increased T waves or palpitations. Medical Records I reviewed the patient's medical records. Lab Data I reviewed the patient's lab results. 06/23/23 11:57 06/23/23 11:57 Laboratory Results WBC 9.22 10^3/uL (3.29-11.43) 06/23/23 11:57 RBC 5.46 10^6/uL (3.85-5.65) 06/23/23 11:57 Hgb 15.50 g/dL (11.27-16.99) 06/23/23 11:57 Hct 47.2 % (37-53) 06/23/23 11:57 MCV 86.4 fl (82-101) 06/23/23 11:57 MCH 28.4 pg (27-33) 06/23/23 11:57 MCHC 32.8 g/dL (30-55) 06/23/23 11:57 RDW 13.0 % (12.1-15.1) 06/23/23 11:57 Plt Count 251 10^3/cmm (157-399) 06/23/23 11:57 MPV 11.6 fL (7.4-10.4) H 06/23/23 11:57 Neut % (Auto) 68.4 % 06/23/23 11:57 Lymph % (Auto) 19.5 % 06/23/23 11:57 Dare % (Auto) 7.2 % 06/23/23 11:57 Eos % (Auto) 3.9 % 06/23/23 11:57 Baso % (Auto) 0.8 % 06/23/23 11:57 Neut # (Auto) 6.31 10^3/uL (1.8-7.7) 06/23/23 11:57 Lymph # (Auto) 1.8 10^3/uL (0.8-4.8) 06/23/23 11:57 Dare # (Auto) 0.7 10^3/uL (0.2-0.9) 06/23/23 11:57 Eos # (Auto) 0.4 10^3/uL (0.0-0.8) 06/23/23 11:57 Baso # (Auto) 0.1 10^3/uL (0.0-0.1) 06/23/23 11:57 Nucleated RBC % (auto) 0 % 06/23/23 11:57 Nucleated RBCs # 0.0 /100WBC 06/23/23 11:57 Specimen Type Arterial 06/23/23 10:56 Sample Site Radial, left 06/23/23 10:56 ABG pH 7.40 (7.35-7.45) 06/23/23 10:56 ABG pCO2 39.6 mmHg (35-45) 06/23/23 10:56 ABG pO2 93.0 mmHg (80.0-100.0) 06/23/23 10:56 ABG PO2/FiO2 Ratio 0 06/23/23 10:56 ABG HCO3 24.3 mmol/L (22-26) 06/23/23 10:56 ABG O2 Saturation 97.9 06/23/23 10:56 ABG Base Excess -0.4 mmol/L (-2.0-2.0) 06/23/23 10:56 Rodger Test Pos 06/23/23 10:56 A-a O2 Gradient 0.8 mmHg (5-10) L 06/23/23 10:56 Hematocrit 47.7 % (42-52) 06/23/23 10:56 Hgb O2 Saturation 97.1 % (95-100) 06/23/23 10:56 Carboxyhemoglobin 0.8 %THgb (0.4-20.1) 06/23/23 10:56 Methemoglobin 0.0 % (0.4-1.5) L 06/23/23 10:56 Total Hemoglobin 15.6 g/dL (14-18) 06/23/23 10:56 Sodium 141.0 mmol/L (131-143) 06/23/23 10:56 Potassium 4.7 mmol/L (3.5-5.0) 06/23/23 10:56 Glucose 101.0 mg/dL (70-115) 06/23/23 10:56 Ionized Calcium 1.3 mmol/L (1.1-1.4) 06/23/23 10:56 O2 Delivery Device Room air 06/23/23 10:56 FiO2 21.0 % 06/23/23 10:56 Health Services Coordinator ID Monro 06/23/23 10:56 Sodium 134 mmol/L (136-145) L 06/23/23 11:57 Potassium 5.6 mmol/L (3.5-5.1) H 06/23/23 11:57 Chloride 99 mmol/L (98-107) 06/23/23 11:57 Carbon Dioxide 24 mmol/L (22-29) 06/23/23 11:57 Anion Gap 16.6 (5-19) 06/23/23 11:57 BUN 12 mg/dL (6-20) 06/23/23 11:57 Creatinine 1.0 mg/dL (0.7-1.2) 06/23/23 11:57 GFR Calculation 85.0 mL/min (90-130) L 06/23/23 11:57 Glucose 106 mg/dL (65-115) 06/23/23 11:57 Calculated Osmolality 278 mOsm/kg (285-295) L 06/23/23 11:57 Calcium 9.6 mg/dL (8.5-10.5) 06/23/23 11:57 Total Bilirubin 0.3 mg/dL (0.15-1.2) 06/23/23 11:57 AST 17 U/L (0-40) 06/23/23 11:57 ALT 24 U/L (0-41) 06/23/23 11:57 Alkaline Phosphatase 90 U/L (40-130) 06/23/23 11:57 Creatine Kinase 59 U/L (39-308) 06/23/23 11:57 Total Protein 7.9 g/dL (6.6-8.7) 06/23/23 11:57 Albumin 4.3 g/dL (3.5-5.2) 06/23/23 11:57 Globulin 3.6 g/dL (1.3-4.6) 06/23/23 11:57 Urine Color Yellow (Yellow) 06/23/23 13:26 Urine Appearance Clear (CLEAR) 06/23/23 13:26 Urine pH 5 (5-7) 06/23/23 13:26 Ur Specific [place] 1.020 (1.005-1.030) 06/23/23 13:26 Urine Protein Neg (Negative) 06/23/23 13:26 Urine Glucose (UA) Norm (Normal) 06/23/23 13:26 Urine Ketones Negative (Negative) 06/23/23 13:26 Urine Blood Neg (Negative) 06/23/23 13:26 Urine Nitrate Negative (Negative) 06/23/23 13:26 Urine Bilirubin Neg (Negative) 06/23/23 13:26 Urine Urobilinogen Norm mg/dL (Negative) 06/23/23 13:26 Ur Leukocyte Esterase Trace (Negative) H 06/23/23 13:26 Urine RBC None /hpf (0-2) 06/23/23 13:26 Urine WBC 0-4 /hpf (0-5) H 06/23/23 13:26 Ur Squamous Epith Cells Rare /hpf (0-5) 06/23/23 13:26 Amorphous Sediment Not Reportable 06/23/23 13:26 Urine Bacteria 1+ /hpf (NONE) H 06/23/23 13:26 Urine Opiates Screen Negative ng/mL (Negative) 06/23/23 13:26 Ur Barbiturates Screen Negative ng/mL (Negative) 06/23/23 13:26 Ur Phencyclidine Scrn Negative ng/mL (Negative) 06/23/23 13:26 Ur Amphetamines Screen Negative ng/mL (Negative) 06/23/23 13:26 U Benzodiazepines Scrn Negative ng/mL (Negative) 06/23/23 13:26 Urine Cocaine Screen Negative ng/mL (Negative) 06/23/23 13:26 U Marijuana (THC) Screen Negative ng/mL (Negative) 06/23/23 13:26 All radiology interpretation(s) finalized by discharge Discharge Plan Discharge Patient Disposition: Home Clinical Impression: Peripheral neuropathy Condition: Stable Prescriptions: No Action fexofenadine [Leesa Allergy] 180 mg tablet 180 mg PO DAILY PRN (Reason: Allergy Symptoms) diclofenac sodium [Voltaren Arthritis Pain] 1 % gel 4 g topical QID Qty: 100 0RF Rx Instructions: apply to single knee, ankle, foot; for foot includes sole/toes/top of foot fluticasone propionate [Flonase Allergy Relief] 50 mcg/actuation spray,suspension 1 spray intranasal DAILY Qty: 16 0RF Rx Instructions: administer into each nostril levofloxacin 500 mg tablet 500 mg PO DAILY 7 Days Qty: 7 0RF venlafaxine 75 mg capsule,extended release 24hr 75 mg PO DAILY Qty: 90 1RF metoprolol succinate 25 mg tablet extended release 24 hr 25 mg PO DAILY Qty: 90 1RF Atrovent HFA 17 mcg/actuation HFA aerosol inhaler See Rx Instructions .ROUTE .COMPLEX Qty: 12.9 4RF Dose Instruction: INHALE 2 PUFFS BY MOUTH TWICE A DAY Rx Instructions: INHALE 2 PUFFS BY MOUTH TWICE A DAY liothyronine [Cytomel] 5 mcg tablet 10 mcg PO DAILY Qty: 180 0RF pantoprazole [Protonix] 40 mg Tablet,Delayed Release (Dr/Ec) 40 mg PO DAILY neomycin-polymyxin B-dexameth [Maxitrol] 3.5mg/mL-10,000 unit/mL-0.1 % drops,suspension 1 drp ophthalmic (eye) Q8H PRN (Reason: itchy eyes) triamcinolone acetonide [Nasacort] 55 mcg aerosol,spray 1 spray intranasal DAILY PRN (Reason: dryness) Rx Instructions: administer into each nostril Discharge Orders: Discharge ED (Routine); Ordered 06/23/23 Ordered By: Kyle Hopkins Referrals: Jacky Fleming MD [Primary Care Provider] - Discharge Diet: Usual diet Discharge Activity: Increase activity as tolerated Patient Instructions: Opioid Safety, Pain Management Activity Restrictions/Additional Instructions: Thank you for choosing [facility] for your healthcare needs today. Please realize this is an emergency room and that we are providing you with a medical screening exam and this may not be complete and all inclusive of all the testing and or work up that you may need to determine your ailment or severity of your illness. It is very important that you follow up as instructed or that you return to the Emergency Department should you have concerns or if your condition changes or worsens in any way. Evaluation emergency room did not show significant abnormality or emergent findings. Recommend that you follow-up with neurology shelter case manager will make arrangements for a clinic visit. Coding Level of Care Code ED Manager Of Finance for Jaylen Rider
[2023-06-23 13:31] VITALS: BP 139/82; PULSE 74; O2SAT 100
--- NOTE | 2023-06-23 13:37 | ECG_ITS ---
[facility] Test Date: 2023-06-23 Pat Name: Bar Rodrigues Department: Room: Gender: Male Polysomnographer: : 1990 Requested By: Kyle Granger Order Number: [id number] Randy MD: Abi Mccollum M.D. Measurements Intervals [place] Rate: 66 P: 41 OK: 158 QRS: 19 QRSD: 94 T: 24 QT: 386 QTc: 407 Interpretive Statements SINUS RHYTHM Compared to ECG 07/17/2019 17:59:41 T-wave abnormality no longer present Electronically Signed On 06-24-2023 13:32:05 CDT by Abi Mccollum M.D. [id number]
[2023-06-23 13:57] LABS: Amphetamines Screen Urine Negative (Negative); Barbiturates Screen Urine Negative (Negative); Benzodiazepines Screen Urine Negative (Negative); Cocaine Screen Urine Negative (Negative); Opiate Screen Urine Negative (Negative); PCP Screen Urine Negative (Negative); THC Screen Urine Negative (Negative)
[2023-06-23 14:01] LABS: Add Urine Culture? No; Bacteria Urine 1+ /hpf; Bilirubin Urine Neg (Negative); Blood Urine Neg (Negative); Glucose Urine UA Norm (Normal); Ketones Urine Negative (Negative); Leukocyte Esterase Urine Trace (Negative); Nitrate Urine Negative (Negative); Protein Urine Neg (Negative); Squamous Epithelial Cell Urine RARE /hpf (0-5); Urine Appearance Clear (CLEAR); Urine Color Yellow (Yellow); Urobilinogen Urine Norm (Negative); WBC Urine 0-4 /hpf (0-5); pH Urine 5 (5-7)
[2023-06-23 14:15] LABS: Creatine Phosphokinase 59 U/L (39-308)
[2023-06-23 14:38] VITALS: BP 137/77; BP 137/93; BP 147/89; PULSE 69; PULSE 74; PULSE 88
[2023-06-23 15:20] VITALS: BP 122/97; PULSE 64; O2SAT 96
[2023-06-23] MEDS: sodium chloride 0.9% 1,000 ML 999 ML IV (15:33)
[2023-06-23 16:11] VITALS: BP 135/90; PULSE 73; O2SAT 100
[2023-06-23 16:29] VITALS: BP 135/90; PULSE 73; RESP 17; TEMP 36.8; O2SAT 100
--- NOTE | 2023-06-23 16:46 | DCPLANNER ---
Sent follow up request to neurology 06/23/23 [id number]
== END 2023-06-23 16:32 | disposition home or self-care (01) ==
PROVIDERS: Emergency Medicine; Emergency Provider Family Medicine; PCP Family Medicine
DX: G62.9 Polyneuropathy, unspecified (principal)
CPT/HCPCS: 36415; 36600; 80051; 80053; 80306; 81001; 82330; 82550; 82805; 85025; 93005; 96360; 99284; J7030

== ENCOUNTER → 2023-07-13 09:52 | Outpatient (BNVA) | payer MEDICAID, SELFPAY | PROVIDERS: PCP Family Medicine; Visit Provider Family Medicine | DX: G62.9 Polyneuropathy, unspecified (principal); E03.9 Hypothyroidism, unspecified; E87.5 Hyperkalemia; Z09 Encounter for follow-up examination after completed treatment for conditions other than malignant neoplasm; F41.9 Anxiety disorder, unspecified; F32.A Depression, unspecified; I10 Essential (primary) hypertension; Z79.899 Other long term (current) drug therapy | CPT/HCPCS: 80048; 82306; 82607; 82746; 84439; 84443 ==

== ENCOUNTER → 2023-08-01 14:30 | Outpatient (BNVA) | payer MEDICAID, SELFPAY | PROVIDERS: PCP Family Medicine; Referring Provider Family Medicine; Visit Provider Specialist | DX: M47.22 Other spondylosis with radiculopathy, cervical region (principal); Q05.9 Spina bifida, unspecified; Z09 Encounter for follow-up examination after completed treatment for conditions other than malignant neoplasm | CPT/HCPCS: 99204; 99205 ==

== ENCOUNTER 2023-09-03 13:19 | Emergency (ER) | payer MEDICAID, SELFPAY ==
[2023-09-03 13:26] VITALS: BP 139/83; PULSE 75; RESP 17; TEMP 36.7; O2SAT 98; BMI 35.4
--- NOTE | 2023-09-03 14:41 | CTR_ITS ---
PROCEDURE INFORMATION: Exam: CT Neck With Contrast Exam date and time: 09/03/2023 3:18 PM Age: 33 years old Clinical indication: Mass, lump, or swelling in neck; Left; Additional info: Reporting L side neck swelling, trouble swallowing TECHNIQUE: Imaging protocol: Computed tomography of the neck with contrast. Contrast material: OMNI 350; Contrast volume: 100 ml; Contrast route: INTRAVENOUS (IV); COMPARISON: CT angio headneck* [id number] 07/17/2019 7:23 PM RADIATION DOSE METRICS: Total DLP (mGy-cm): 362 FINDINGS: Paranasal sinuses: There is trace mucosal thickening within the bilateral maxillary and sphenoid sinuses. No air-fluid levels are identified Salivary glands: Normal. Glands are normal in size. Pharynx: Unremarkable. No significant tonsillar enlargement. Prevertebral and retropharyngeal spaces: Unremarkable. Larynx: Unremarkable. Epiglottis is normal. Thyroid: Normal. No enlarged or calcified nodules. Trachea: Visualized trachea is unremarkable. Lungs: Unremarkable as visualized. Lymph nodes: Unremarkable. No lymphadenopathy. Bones/joints: Unremarkable. No acute fracture. Soft tissues: Unremarkable. No significant soft tissue swelling. CT/CT neck w con* [id number] IMPRESSION: No acute findings.
--- NOTE | 2023-09-03 14:42 | W.ED.NECK ---
HPI - Neck Pain/Injury General: Chief Complaint: Upper Respiratory Infection Stated Complaint: throat swelling Time Seen by Provider: 09/03/23 13:32 Source: patient Mode of arrival: ambulatory Limitations: no limitations History of Present Illness: Patient is a 33-year-old male who presents to ED today with a complaint of feeling like the left side of his neck is swelling. Patient states swelling sensation is always there but seems to worsen at times and now feels like maybe it is moving into his jaw. States he feels it more so when he swallows. No difficulty breathing or swallowing and eating/drinking okay. Has been seen at walk in and diagnosed with swollen lymph node . Also discussed with PCP but states everyone keeps brushing me off . He states he is very concerned and it causing him quite a bit of anxiety. States he has not noticed any visible swelling to the outside of his neck or jaw but states it just feels swollen on the inside . MD complaint: other (neck swelling) Onset (ago): month(s) Place: home Duration: constant (with intermittent worsening symptoms) Relieving factors: none Exacerbating factors: none Associated symptoms: Reports no associated symptoms; Denies headache(s) or nausea Treatments prior to arrival: none Review of Systems Const: Denies: fever(s), chills, body aches, fatigue or malaise Eyes: Denies: change in vision, blurry vision, photophobia, yellow eyes, floaters or seeing flashes ENMT: Denies: throat pain, uvular edema, enlarged tonsils, odynophagia, swelling of lips/tongue, oral sores, dental pain, ear discharge, change in hearing, nasal discharge, nasal congestion or sinus pain Card: Denies: chest pain Resp: Denies: dyspnea GI: Denies: nausea or vomiting Musc: Denies: back pain, extremity pain, extremity swelling, joint pain or joint swelling Skin/Breast: Denies: rash Neuro: Denies: headache(s), numbness in extremities, weakness in extremities or sensory changes [facility] ED PFSH: Medical History Asthma Hypothyroidism IBS (irritable bowel syndrome) BMI 34.0-34.9,adult Depression Anxiety Spina bifida aperta of cervical spine History of eustachian tube dysfunction Cervical radiculopathy Surgical History History of cholecystectomy History of knee surgery History of adenectomy Family History Father Cancer wagners granulomus Other Diabetes Hyperlipidemia Hypertension Lung disease Stroke Denies family history of CAD (coronary artery disease) Clotting disorder Dementia Psychiatric illness Chronic kidney disease (CKD) Anesthesia complication Bleeding disorder Social History Smoking and tobacco/nicotine status: never used tobacco/nicotine Alcohol intake: never Substance/Drug Use: never Lives independently: Yes Marital status: Number of children: 4 Current occupational status: disabled Current gender identity: Male Physical Exam Const: COMMON NORMALS: no acute distress, patient oriented x3, no limitations, alert and well nourished GENERAL APPEARANCE: cooperative ORIENTATION/CONSCIOUSNESS: Yes awake, Yes oriented to person, Yes oriented to place and Yes oriented to time HENMT: COMMON NORMALS: normocephalic, atraumatic, EAC's normal, TM's normal bilaterally (does have scarring) and Normal external nose present HEAD & SCALP: normal to inspection, normocephalic and atraumatic FACE & SINUS: normal facial exam, sinuses nontender and face symmetric; no sinus tenderness and no edema FACE & SINUS IMAGES: 1. reports swelling sensation NOSE: Normal external nose present EXTERNAL AUDITORY CANAL: EAC's normal TYMPANIC MEMBRANE: TM's normal bilaterally (does have scarring) MOUTH: Normal oral and palatal mucosa present and lip normal THROAT: posterior oropharynx normal and tonsils normal; no uvular edema Eye: COMMON NORMALS: Equal, round and reactive pupils present and EOMs intact bilaterally GENERAL EYE: appearance normal, both eyes and all related structures and normal light reflex PUPIL: Yes Equal, round and reactive pupils present DIRECT OPHTHALMOSCOPY: Yes normal light reflex Neck/C-Spine: COMMON NORMALS: full ROM, no lymphadenopathy, no meningeal signs, no JVD, Thyroid normal and No carotid bruits GENERAL: Yes normal visual inspection THYROID: Thyroid normal Cardio: COMMON NORMALS: no JVD Neuro: COMMON NORMALS: patient oriented x3 SENSORIUM/ORIENTATION: Yes alert, Yes oriented to person, Yes oriented to place and Yes oriented to time MENINGEAL SIGNS: Yes no meningeal signs Course Vital Signs: Vital signs: Vital Signs Temperature 98.1 F 07/29/24 13:26 Pulse Rate 68 09/03/23 15:52 Respiratory Rate 17 09/03/23 13:26 Blood Pressure 129/81 09/03/23 15:52 Pulse Oximetry 96 09/03/23 15:52 Oxygen Delivery Me thod Room Air 09/03/23 15:52 MDM - Neck Pain/Injury Medical Decision Making CT scan is unremarkable. He will be allowed discharge with return precautions. He can follow-up with primary care for any further concerns. Medical Records I reviewed the patient's medical records. Lab Data Radiology Impressions Neck CT 09/03/23 14:41 IMPRESSION: No acute findings. All radiology interpretation(s) finalized by discharge Discharge Plan Discharge Patient Disposition: Home Clinical Impression: Neck complaint Condition: Stable Prescriptions: No Action duloxetine [Cymbalta] 30 mg capsule,delayed release(DR/EC) 30 mg PO DAILY Qty: 30 1RF fexofenadine [Leesa Allergy] 180 mg tablet 180 mg PO DAILY PRN (Reason: Allergy Symptoms) fluticasone propionate [Flonase Allergy Relief] 50 mcg/actuation spray,suspension 1 spray intranasal DAILY Qty: 16 0RF Rx Instructions: administer into each nostril metoprolol succinate 25 mg tablet extended release 24 hr 25 mg PO DAILY Qty: 90 1RF Atrovent HFA 17 mcg/actuation HFA aerosol inhaler See Rx Instructions .ROUTE .COMPLEX Qty: 12.9 4RF Dose Instruction: INHALE 2 PUFFS BY MOUTH TWICE A DAY Rx Instructions: INHALE 2 PUFFS BY MOUTH TWICE A DAY liothyronine [Cytomel] 5 mcg tablet 10 mcg PO DAILY Qty: 180 0RF pantoprazole [Protonix] 40 mg Tablet,Delayed Release (Dr/Ec) 40 mg PO DAILY Discharge Orders: Discharge ED (Routine); Ordered 09/03/23 Ordered By: Dannielle Wilson Referrals: Jacky Fleming MD [Primary Care Provider] - Activity Restrictions/Additional Instructions: As we discussed your CT imaging was negative today. He can follow-up with primary care for further concerns. Coding Level of Care Code ED Drier Take Off Tender for Jaylen Rider
[2023-09-03] MEDS: iohexol 350 mg/mL 500 mL Btl (per mL) IV (15:33)
[2023-09-03 15:52] VITALS: BP 129/81; PULSE 68; O2SAT 96
== END 2023-09-03 16:30 | disposition home or self-care (01) ==
PROVIDERS: Emergency Provider Physician Assistant; PCP Family Medicine
DX: R22.1 Localized swelling, mass and lump, neck (principal)
CPT/HCPCS: 70491; 99285; Q9967

== ENCOUNTER 2023-09-11 13:00 | Outpatient (CLI) | payer MEDICAID, SELFPAY ==
--- NOTE | 2023-09-11 13:00 | MR_ITS ---
WS: [id number] MRI CERVICAL SPINE NONCONTRAST TECHNIQUE: Sagittal T1, T2 and STIR imaging. Axial T2, gradient, and fiesta imaging. CLINICAL INFORMATION: M47.22 - Other spondylosis with radiculopathy, cervical r... COMPARISON: MRI 2020 FINDINGS: Straightening of the normal cervical lordosis. Cord signal is normal. No high-grade central canal marsha rowing. C2-C3: Mild facet arthropathy. Spinal canal and foramen are patent. C3-C4: Mild osteophytic ridging. Mild LEFT bony foraminal narrowing. Mild facet arthropathy. C4-C5: Mild disc osteophyte ridging. Mild LEFT bony foraminal narrowing. Mild facet arthropathy. C5-C6: Mild disc osteophyte complex with endplate ridging. Mild LEFT foraminal narrowing. Mild facet arthropathy. C6-C7: Mild to moderate LEFT greater than RIGHT bony foraminal narrowing. RIGHT paracentral disc oste ophyte protrusion with mild central canal stenosis. Endplate osteophytic ridging. Uncovertebral joint hypertrophy. C7-T1: Endplate osteophytic ridging. Mild LEFT greater than RIGHT bony foraminal narrowing. Spinal ca nal is patent. Tiny annular fissure. This is new compared to previous. Visualized brain stem structures: Normal. Prevertebral soft tissues: Normal. MR/MR cervical spin wo con* [id number] IMPRESSION: 1. Straightening of the normal cervical lordosis. Cord signal is normal. No si gnificant central canal narrowing. 2. Disc osteophyte complex C7-T1 with a small annular fissure new from previou s. Mild LEFT greater than RIGHT foraminal narrowing at this level. 3. Shallow RIGHT paracentral protrusion C6-7 with mild central canal stenosis appears unchanged. Mild to moderate bilateral foraminal narrowing. 4. Otherwise mild bony foraminal narrowing LEFT C3-C4, LEFT C4-C5, and LEFT C5 -C6. 5. Mild to moderate facet arthropathy C4-C5 C5-C6 and C6-C7.
--- NOTE | 2023-09-11 13:45 | MR_ITS ---
WS: [id number] MRI LUMBAR SPINE NONCONTRAST TECHNIQUE: Sagittal T1, T2 and STIR imaging. Axial T1 and T2 imaging. CLINICAL INFORMATION: M47.22 - Other spondylosis with radiculopathy, cervical r... COMPARISON: None. FINDINGS: Mild lumbar curve. No acute compression. Disc bulging worse at L2-L3 L3-L4 and L4-L5. Small annular f issures at L2-3 and L3-4. L1-L2: Mild facet arthropathy. Spinal canal and foramen are patent. L2-L3: Shallow central protrusion. Mild central canal stenosis. Mild facet arthropathy. Mild bilatera l foraminal narrowing. L3-L4: Mild annular bulging. Tiny annular fissure. Mild facet arthropathy. Mild bilateral foraminal n arrowing. L4-L5: Slight anterolisthesis. Central and LEFT paracentral disc protrusion with narrowing of the LEF T subarticular recess. Impingement LEFT L5 nerve root. Mild facet arthropathy. Mild LEFT foraminal na rrowing. RIGHT foramen is patent. L5-S1: Mild annular bulging with a tiny RIGHT paracentral protrusion. Slight contact of the RIGHT S1 nerve root. Mild facet arthropathy. Mild LEFT foraminal narrowing. Visualized pelvic bony structures: Normal. Paravertebral soft tissues: Normal. MR/MR lumbar spine wo con* [id number] IMPRESSION: 1. Mild central canal stenosis L2-3 with a shallow central protrusion and smal l annular fissure. 2. Small central protrusion L3-4 with a small annular fissure 3. Central LEFT paracentral disc protrusion L4-5 impinges the LEFT subarticula r recess and traversing LEFT L5 nerve root. 4. Tiny RIGHT paracentral protrusion L5-S1 slightly contacts the RIGHT S1 nerv e root. 5. Mild bilateral L3-L4, L4-L5, and LEFT L5-S1 foraminal narrowing.
== END 2023-09-11 13:05 | disposition home or self-care (01) ==
PROVIDERS: PCP Family Medicine; Visit Provider Specialist
DX: M47.22 Other spondylosis with radiculopathy, cervical region (principal); Q05.9 Spina bifida, unspecified; M51.26 Other intervertebral disc displacement, lumbar region; M99.62 Osseous and subluxation stenosis of intervertebral foramina of thoracic region
CPT/HCPCS: 72141; 72148

== ENCOUNTER → 2023-10-02 14:27 | Outpatient (BNVA) | payer MEDICAID, SELFPAY | PROVIDERS: PCP Family Medicine; Visit Provider Specialist | DX: G62.9 Polyneuropathy, unspecified (principal); Z09 Encounter for follow-up examination after completed treatment for conditions other than malignant neoplasm; M47.22 Other spondylosis with radiculopathy, cervical region; M51.9 Unspecified thoracic, thoracolumbar and lumbosacral intervertebral disc disorder | CPT/HCPCS: 99214 ==

== ENCOUNTER 2024-01-10 11:00 | Outpatient (RCR) | payer MEDICAID, SELFPAY | END 2024-02-05 23:59 | disposition home or self-care (01) | LOC: SST 11:00 | PROVIDERS: PCP Family Medicine; Visit Provider Family Medicine | DX: R13.10 Dysphagia, unspecified (principal) | CPT/HCPCS: 92526; 92610 ==

== ENCOUNTER 2024-01-24 10:44 | Outpatient (CLI) | payer MEDICAID, SELFPAY ==
--- NOTE | 2024-01-24 10:46 | FL_ITS ---
WS: [id number] Modified barium swallow, 01/24/2024 Clinical Data: Other dysphagia Comparison: None. Fluoroscopy time: 1min [id number] # of spot films: 0 Findings: The patient initiated swallowing normally. There is no premature spillage. There is no pharyngeal res idue. No aspiration or penetration occurred. The barium tablet was propelled normally from the oral p harynx into the hypopharynx, then the esophagus and into the stomach. FL/FL barium swallow modifd [id number] Impression: Negative modified barium swallow.
== END 2024-01-24 10:45 | disposition home or self-care (01) ==
LOC: RAD 10:45
PROVIDERS: PCP Family Medicine; Visit Provider Family Medicine
DX: R13.10 Dysphagia, unspecified (principal)
CPT/HCPCS: 74230; 92611

== ENCOUNTER 2024-02-19 13:56 | Outpatient (CLI) | payer MEDICAID, SELFPAY ==
--- NOTE | 2024-02-19 13:58 | CT_ITS ---
WS: [id number] CT NECK TECHNIQUE: Contrast-enhanced CT of the neck with coronal and sagittal reformatted images. CLINICAL INFORMATION: DYSPHAGIA COMPARISON: CT neck 09/03/2023 DLP: 203.[address] scans at [facility] use at least one of these dose optimization techniques: automated e xposure control; mA and/or kV adjustment per patient size (includes targeted exams where dose is matc hed to clinical indication); or iterative reconstruction. FINDINGS: Mild mucosal thickening in the paranasal sinuses. Small retention cysts in the LEFT maxillary sinus. Mastoid air cells are well aerated. Normal pterygopalatine fossa. Normal posterior nasopharynx. Holly l parapharyngeal fat. A few tiny tonsillar calcifications. Normal [place] tonsils. Tongue base appea rs normal. Normal vallecula and piriform sinuses. No evidence of supraglottic or glottic mass. Normal subglottic airway. Normal thyroid gland. Parotid glands are normal. Normal submandibular glands. No cervical lymphadenopathy. Carotids appear patent. Lung apices are well aerated. Straightening of the normal cervical lordosis. Palpable marker overlyin g the LEFT lower neck just below the submandibular gland. Normal underlying platysma. A few submandib ular lymph nodes superior to the BB. No suspicious underlying lesions in this area. CT/CT neck w con* [id number] IMPRESSION: 1. No suspicious lesions deep to the palpable marker. Palpable marker is just inferior to the tip of the submandibular gland LEFT neck. 2. No evidence of supraglottic or glottic mass. Normal subglottic airway. 3. Mild mucosal thickening in the paranasal sinuses. Mastoid air cells are wel l aerated. 4. No other suspicious findings.
[2024-02-19] MEDS: iohexol 350 mg/mL 500 mL Btl (per mL) IV (14:50)
== END 2024-02-19 13:57 | disposition home or self-care (01) ==
LOC: RAD 13:57
PROVIDERS: PCP Family Medicine; Visit Provider Specialist
DX: R13.10 Dysphagia, unspecified (principal); R93.89 Abnormal findings on diagnostic imaging of other specified body structures; K11.6 Mucocele of salivary gland
CPT/HCPCS: 70491

== ENCOUNTER 2024-03-22 14:37 | Emergency (ER) | payer MEDICAID, SELFPAY ==
[2024-03-22 14:40] VITALS: BP 144/74; PULSE 70; RESP 16; TEMP 36.7; O2SAT 100; BMI 32.5
[2024-03-22 15:28] LABS: Basophils % 0.4 %; Eosinophils # 0.5 10^3/uL (0.0-0.8); Hematocrit 45.8 % (37-53); Lymphocytes # 1.8 10^3/uL (0.8-4.8); Lymphocytes % 25.4 %; Mean Corpuscular HGB Conc 32.5 g/dL (30-55); Mean Corpuscular Volume 85.9 fl (82-101); Mean Platelet Volume 11.6 fL (7.4-10.4); Monocytes # 0.5 10^3/uL (0.2-0.9); Monocytes % 7.7 %; Neutrophils # 4.06 10^3/uL (1.8-7.7); Neutrophils % 59.1 %; Nucleated Red Blood Cells % 0 %; Platelet Count 255 10^3/cmm (157-399); Red Blood Count 5.33 10^6/uL (3.85-5.65); Red Cell Distribution Width 12.8 % (12.1-15.1); White Blood Count 6.88 10^3/uL (3.29-11.43)
[2024-03-22 15:47] LABS: Alanine Aminotransferase 27 U/L (0-41); Albumin Level 4.2 g/dL (3.5-5.2); Alkaline Phosphatase 99 U/L (40-130); Anion Gap 16.6 (5-19); Aspartate Amino Transferase 16 U/L (0-40); Blood Urea Nitrogen 9 mg/dL (6-20); Calcium 9.5 mg/dL (8.5-10.5); Carbon Dioxide 25 mmol/L (22-29); Chloride 97 mmol/L (98-107); Creatinine Clr Calc Pharmacy 132.1442; Globulin 3.5 g/dL (1.3-4.6); Glomerular Filtration Rate 95.5 mL/min (90-130); Glucose 95 mg/dL (65-115); Lipase 27 U/L (13-60); Osmolality Calculated 276 mOsm/kg (285-295); Potassium 4.6 mmol/L (3.5-5.1); Sodium 134 mmol/L (136-145); Total Bilirubin 0.3 mg/dL (0.15-1.2); Total Protein 7.7 g/dL (6.6-8.7)
[2024-03-22 16:38] LABS: Bilirubin Urine Negative (Negative); Blood Urine Negative (Negative); Glucose Urine UA Negative (Normal); Ketones Urine Negative (Negative); Leukocyte Esterase Urine Negative (Negative); Nitrate Urine Negative (Negative); Protein Urine Negative (Negative); Specific Gravity, Urine 1.012 (1.005-1.030); Urine Appearance Clear (CLEAR); Urine Color Yellow (Yellow); Urobilinogen Urine 0.2 mg/dL (Negative); pH Urine 5.5 (5-7)
[2024-03-22 16:42] LABS: Add Urine Microscopic? YES; Bacteria Urine None Seen /hpf; Hyaline Casts Urine 0-4 /lpf; RBC Urine 0-2 /hpf (0-2); Squamous Epithelial Cell Urine 0-5 /hpf (0-5); WBC Urine 0-5 /hpf (0-5)
--- NOTE | 2024-03-22 17:02 | CTR_ITS ---
PROCEDURE INFORMATION: Exam: CT Abdomen And Pelvis With Contrast Exam date and time: 03/22/2024 5:11 PM Age: 34 years old Clinical indication: Abdominal pain; Acute; Prior surgery; Surgery date: 6+ months; Surgery type: Gb; Additional info: Abd pain TECHNIQUE: Imaging protocol: Computed tomography of the abdomen and pelvis with contrast. Axial, coronal and sagittal reformatted images were created and reviewed. Radiation optimization: All CT scans at this facility use at least one of these dose optimization techniques: automated exposure control; mA and/or kV adjustment per patient size (includes targeted exams where dose is matched to clinical indication); or iterative reconstruction. Contrast material: OMNIPAQUE 350; Contrast volume: 100 ml; Contrast route: INTRAVENOUS (IV); COMPARISON: CT abdomen pelvis w con* [id number] 12/06/2018 11:20 AM RADIATION DOSE METRICS: Total DLP (mGy-cm): 842.3 FINDINGS: Liver: Unremarkable. Gallbladder and biliary ducts: Status post cholecystectomy. No biliary ductal dilatation. Pancreas: Unremarkable. Spleen: Unremarkable. Adrenal glands: Normal. No mass. Kidneys and ureters: No mass. No radiodense calculi. No hydronephrosis. Stomach and bowel: No bowel wall thickening. No obstruction. No pneumatosis. Appendix: Normal. Intraperitoneal space: Subtle, hazy infiltration of the mesenteric fat. No free fluid. No organized collection. No free air. Vasculature: Unremarkable. No aneurysm. Lymph nodes: Multiple small mesenteric lymph nodes, nonspecific in appearance. No pathologically enlarged lymph nodes. Urinary bladder: Mild circumferential urinary bladder wall thickening, likely secondary to underdistention. Reproductive: Unremarkable. Bones/joints: No acute osseous abnormality. Mild degenerative changes. Soft tissues: Unremarkable. CT/CT abdomen pelvis w con* [id number] IMPRESSION: 1. Hazy infiltration of the mesenteric fat with multiple small mesenteric lymph nodes, suggestive of alejandro mesentery, a nonspecific finding which can be seen with mesenteric panniculitis. 2. Additional findings, as above.
[2024-03-22] MEDS: iohexol 350 mg/mL 500 mL Btl (per mL) IV (17:14)
--- NOTE | 2024-03-22 17:22 | ED_ITS ---
HPI - Abdominal Pain 2 General: Chief Complaint: Abdominal Pain Stated Complaint: abd pain Time Seen by Provider: 03/22/24 16:24 History of Present Illness: 34-year-old male presents emergency room with complaint of abdominal pain. Patient complaining of right-sided abdominal pain radiating down into the right lower quadrant. This been going on for several days. No hematochezia melena hematemesis cough cramps no dysuria urgency or frequency no hematuria. He previously has had a cholecystectomy. No history of kidney stones. No fever sweats or chills. Associated Symptoms: Denies chills, coffee ground emesis, dysuria, fever(s), hematochezia, hematemesis, melena, nausea and vomiting Related Data Home Medications ?Medication ?Instructions ?Recorded ?Confirmed pantoprazole 40 mg tablet,delayed 40 mg PO DAILY 05/2510/02/23 release (Protonix) fexofenadine 180 mg tablet 180 mg PO DAILY PRN Allergy 05/24/22 10/02/23 (Leesa Allergy) Symptoms Previous Rx's ?Medication ?Instructions ?Recorded fluticasone propionate 50 1 spray intranasal DAILY #16 grams 01/17/23 mcg/actuation nasal spray,suspension (Flonase Allergy Relief) ipratropium bromide 17 See Rx Instructions .Route 0 05/21/23 mcg/actuation HFA aerosol inhaler .COMPLEX #12.9 ea (Atrovent HFA) duloxetine 30 mg capsule,delayed 30 mg PO DAILY #30 ca ps 08/15/23 release (Cymbalta) liothyronine 5 mcg tablet (Cytomel) 10 mcg (2 x 5 mcg) PO DAILY #180 09/19/23 tabs metoprolol succinate 25 mg 25 mg PO DAILY #90 tabs 08/28 tablet,extended release 24 hr promethazine 25 mg tablet 25 mg PO Q6H PRN nausea and 03/22/24 vomiting #20 tabs Allergies Allergy/AdvReac Type Severity Reaction Status Date / Time ibuprofen Allergy ADR/ALGY-Pa Verified 10/02/23 14:39 lpitations prednisone Allergy ADR-Drowsy Verified 10/02/23 14:39 amlodipine AdvReac Intermediate abdominal Verified 10/02/23 14:39 pain gabapentin AdvReac Intermediate made him Verified 10/02/23 14:39 sick lisinopril AdvReac Intermediate nausea and Verified 10/02/23 14:39 vomiting Review of Systems 2 Const: Denies: fever(s) or chills Card: Denies: chest pain Resp: Denies: dyspnea GI: Reports: abdominal pain; Denies: nausea, vomiting, hematemesis, coffee ground emesis, hematochezia or melena : Denies: dysuria, urinary frequency or urinary urgency Musc: Denies: neck pain or back pain Skin/Breast: Denies: rash PFSH ED 2 PFSH: Medical History Asthma Hypothyroidism IBS (irritable bowel syndrome) BMI 34.0-34.9,adult Depression Anxiety Spina bifida aperta of cervical spine History of eustachian tube dysfunction Cervical radiculopathy Surgical History History of cholecystectomy History of knee surgery History of adenectomy Family History Father Cancer wagners granulomus Other Diabetes Hyperlipidemia Hypertension Lung disease Stroke Denies family history of CAD (coronary artery disease) Clotting disorder Dementia Psychiatric illness Chronic kidney disease (CKD) Anesthesia complication Bleeding disorder Social History Smoking and tobacco/nicotine status: never used tobacco/nicotine Alcohol intake: never Substance/Drug Use: never Lives independently: Yes Marital status: Number of children: 4 Current occupational status: disabled Current gender identity: Male Physical Exam 2 Const: GENERAL APPEARANCE: cooperative ORIENTATION/CONSCIOUSNESS: Yes awake, Yes oriented to person, Yes oriented to place and Yes oriented to time HENMT: COMMON NORMALS: normocephalic, atraumatic and hearing grossly normal bilaterally HEAD & SCALP: normocephalic and atraumatic Resp: COMMON NORMALS: normal respiratory effort, No retractions, No use of accessory muscles and clear to auscultation bilaterally AUSCULTATION: clear to auscultation bilaterally Cardio: COMMON NORMALS: regular rate, regular rhythm and No murmurs present (Cardio) RATE: regular rate RHYTHM: regular rhythm GI: COMMON NORMALS: No hepatosplenomegaly present AUSCULTATION: Yes normoactive bowel sounds PALPATION: Yes Tenderness to palpation present (GI) (Right side), No Guarding due to palpation present (GI) and Yes No hepatosplenomegaly present Extremity: COMMON NORMALS: normal to inspection, capillary refill normal, no clubbing, cyanosis or edema, no calf tenderness and no pedal edema Neuro: SENSORIUM/ORIENTATION: Yes oriented to person, Yes oriented to place and Yes oriented to time Skin: COMMON NORMALS: no rashes or lesions noted GENERAL SKIN EXAM: no rashes or lesions noted Course 2 Vital Signs: Vital signs: Vital Signs Temperature 98.0 F 03/22/24 14:40 Pulse Rate 71 03/22/24 17:45 Respiratory Rate 16 03/22/24 14:40 Blood Pressure 144/74 03/22/24 14:40 Pulse Oximetry 96 03/22/24 17:45 Oxygen Delivery Me thod Room Air 03/22/24 14:40 MDM - Abdominal Pain Medical Decision Making Labs do not show any significant abnormality imaging shows mesenteric panniculitis. Given his overall condition at this point I do not think he would be any benefit to interventions. Would recommend clear liquid diet advance as tolerated symptoms persist follow-up with primary care and he may need referral to gastroenterology. Medical Records I reviewed the patient's medical records. Lab Data I reviewed the patient's lab results. 03/22/24 15:22 03/22/24 15: Labs/Radiology: Radiology Impressions Abdomen/Pelvis CT 03/22/24 17:02 IMPRESSION: 1. Hazy infiltration of the mesenteric fat with multiple small mesenteric lymph nodes, suggestive of alejandro mesentery, a nonspecific finding which can be seen with mesenteric panniculitis. 2. Additional findings, as above. Laboratory Results WBC 6.88 10^3/uL (3.29-11.43) 03/22/24 15: RBC 5.33 10^6/uL (3.85-5.65) 03/22/24 15: Hgb 14.90 g/dL (11.27-16.99) 03/22/24 15: Hct 45.8 % (37-53) 03/22/24 15: MCV 85.9 fl (82-101) 03/22/24: MCH 28.0 pg (27-33) 03/22/24: MCHC 32.5 g/dL (30-55) 03/22/24 15: RDW 12.8 % (12.1-15.1) 03/22/24: Plt Count 255 10^3/cmm (157-399) 03/22/24 15: MPV 11.6 fL (7.4-10.4) H 03/22/24 15: Neut % (Auto) 59.1 % 03/22/24: Lymph % (Auto) 25.4 % 03/22/24: [place] % (Auto) 7.7 % 03/22/24: Eos % (Auto) 7.0 % 03/22/24: Baso % (Auto) 0.4 % 03/22/24: Neut # (Auto) 4.06 10^3/uL (1.8-7.7) 03/22/24: Lymph # (Auto) 1.8 10^3/uL (0.8-4.8) 03/22/24: [place] # (Auto) 0.5 10^3/uL (0.2-0.9) 03/22/24: Eos # (Auto) 0.5 10^3/uL (0.0-0.8) 03/22/24: Baso # (Auto) 0.0 10^3/uL (0.0-0.1) 03/22/24: Nucleated RBC % (auto) 0 % 03/22/24: Nucleated RBCs # 0.0 /100WBC 03/22/24: Sodium 134 mmol/L (136-145) L 03/22/24: Potassium 4.6 mmol/L (3.5-5.1) 03/22/24: Chloride 97 mmol/L (98-107) L 03/22/24: Carbon Dioxide 25 mmol/L (22-29) 03/22/24: Anion Gap 16.6 (5-19) 03/22/24: BUN 9 mg/dL (6-20) 03/22/24: Creatinine 0.9 mg/dL (0.7-1.2) 03/22/24: GFR Calculation 95.5 mL/min (90-130) 03/22/24 15: Glucose 95 mg/dL (65-115) 03/22/24: Calculated Osmolality 276 mOsm/kg (285-295) L 03/22/24: Calcium 9.5 mg/dL (8.5-10.5) 03/22/24: Total Bilirubin 0.3 mg/dL (0.15-1.2) 03/22/24: AST 16 U/L (0-40) 03/22/24: ALT 27 U/L (0-41) 03/22/24 15: Alkaline Phosphatase 99 U/L (40-130) 03/22/24: Total Protein 7.7 g/dL (6.6-8.7) 03/22/24: Albumin 4.2 g/dL (3.5-5.2) 03/22/24: Globulin 3.5 g/dL (1.3-4.6) 03/22/24: Lipase 27 U/L (13-60) 03/22/24 15: Urine Color Yellow (Yellow) 03/22/24 16:35 Urine Appearance Clear (CLEAR) 03/22/24 16:35 Urine pH 5.5 (5-7) 03/22/24 16:35 Ur Specific [place] 1.012 (1.005-1.030) 03/22/24 16:35 Urine Protein Negative (Negative) 03/22/24 16:35 Urine Glucose (UA) Negative (Normal) 03/22/24 16:35 Urine Ketones Negative (Negative) 03/22/24 16:35 Urine Blood Negative (Negative) 03/22/24 16:35 Urine Nitrate Negative (Negative) 03/22/24 16:35 Urine Bilirubin Negative (Negative) 03/22/24 16:35 Urine Urobilinogen 0.2 mg/dL (Negative) 03/22/24 16:35 Ur Leukocyte Esterase Negative (Negative) 03/22/24 16:35 Urine RBC 0-2 /hpf (0-2) 03/22/24 16:35 Urine WBC 0-5 /hpf (0-5) 03/22/24 16:35 Ur Squamous Epith Cells 0-5 /hpf (0-5) 03/22/24 16:35 Amorphous Sediment Not Reportable 03/22/24 16:35 Urine Bacteria None seen /hpf (NONE) 03/22/24 16:35 Hyaline Casts 0-4 /lpf H 03/22/24 16:35 All radiology interpretation(s) finalized by discharge Discharge Plan Discharge Patient Disposition: Home Clinical Impression: Mesenteric panniculitis Condition: Stable Prescriptions: New promethazine 25 mg tablet 25 mg PO Q6H PRN (Reason: nausea and vomiting) Qty: 20 0RF No Action duloxetine [Cymbalta] 30 mg capsule,delayed release(DR/EC) 30 mg PO DAILY Qty: 30 1RF fexofenadine [Leesa Allergy] 180 mg tablet 180 mg PO DAILY PRN (Reason: Allergy Symptoms) fluticasone propionate [Flonase Allergy Relief] 50 mcg/actuation spray,suspension 1 spray intranasal DAILY Qty: 16 0RF Rx Instructions: administer into each nostril Atrovent HFA 17 mcg/actuation HFA aerosol inhaler See Rx Instructions .ROUTE .COMPLEX Qty: 12.9 4RF Dose Instruction: INHALE 2 PUFFS BY MOUTH TWICE A DAY Rx Instructions: INHALE 2 PUFFS BY MOUTH TWICE A DAY liothyronine [Cytomel] 5 mcg tablet 10 mcg PO DAILY Qty: 180 0RF metoprolol succinate 25 mg tablet extended release 24 hr 25 mg PO DAILY Qty: 90 1RF pantoprazole [Protonix] 40 mg Tablet,Delayed Release (Dr/Ec) 40 mg PO DAILY Discharge Orders: Discharge ED (Routine); Ordered 03/22/24 Ordered By: Kyle Hopkins Referrals: Darshan Bonilla MD [Primary Care Provider] - Discharge Diet: Clear Liquid Discharge Activity: Increase activity as tolerated Patient Instructions: Opioid Safety, Pain Management Activity Restrictions/Additional Instructions: Thank you for choosing [facility] for your healthcare needs today. It is very important that you follow up as instructed or that you return to the Emergency Department should you have concerns or if your condition changes or worsens in any way. You were seen in the emergency room with complaints of abdominal pain your white count was normal liver functions were also normal. Urine was also normal. CT showed inflammation of the fat lining inside of the abdomen. This is called mesenteric panniculitis. No treatment is indicated at this time if your symptoms persist follow-up with primary care. Print Language: Malay Coding Level of Care Code ED Security Coordinator for Jaylen Rider
[2024-03-22 17:45] VITALS: PULSE 71; O2SAT 96
[2024-03-22 18:07] VITALS: BP 122/85; PULSE 73; O2SAT 99
== END 2024-03-22 18:08 | disposition home or self-care (01) ==
PROVIDERS: Emergency Medicine; Emergency Provider Family Medicine; PCP Family Medicine
DX: K65.4 Sclerosing mesenteritis (principal)
CPT/HCPCS: 74177; 80053; 81001; 83690; 85025; 99285